=== PATIENT | male | born 1985 | race Caucasian/White ===

== ENCOUNTER 2020-01-30 07:28 | Outpatient (REF) | payer OTHER, SELFPAY ==
[2020-01-30 07:50] LABS: MANUAL DIFF FLAG NO
[2020-01-30 07:58] LABS: Basophils Absolute Auto 0.1 X10*3/uL (0.0-0.2); Basophils Percent Auto 0.7 % (0-2); Eosinophils Absolute Auto 0.1 X10*3/uL (0.0-0.4); Eosinophils Percent Auto 1.6 % (0-4); Hematocrit 46.9 % (42-52); Hemoglobin 15.7 g/dl (14.0-18.0); Imm Gran Abs Auto 0.03 X10*3/uL (0.00-0.03); Imm Gran Pct Auto 0.3 % (0.0-0.4); Lymphocytes Absolute Auto 2.7 X10*3/uL (1.2-4.9); Lymphocytes Percent Auto 30.3 % (20-40); Mean Corpuscular HGB Conc 33.5 g/dl (31.0-36.0); Mean Corpuscular Hemoglobin 28.6 pg (27.0-33.0); Mean Corpuscular Volume 85.6 fL (80-98); Mean Platelet Volume 10.3 fL (9.4-12.4); Monocytes Absolute Auto 0.8 X10*3/uL (0.1-1.2); Monocytes Percent Auto 8.9 % (2-11); Neutrophils Absolute Auto 5.2 X10*3/uL (2.0-8.3); Neutrophils Percent Auto 58.2 % (45-73); Platelet Count 269 X10*3/uL (160-400); Red Blood Count 5.48 X10*6/uL (4.60-5.80); Red Cell Distribution Width 12.8 % (11.0-16.0); White Blood Count 8.9 X10*3/uL (4.8-10.8)
[2020-01-30 08:18] LABS: Alanine Aminotransferase 33 U/L (0-40); Albumin Level 4.5 g/dL (3.5-5.0); Alkaline Phosphatase 103 U/L (39-117); Anion Gap 11 (12-20); Aspartate Amino Transferase 24 U/L (5-37); Bilirubin Total 0.5 mg/dL (0.0-1.0); Blood Urea Nitrogen 9 mg/dL (9-16); Calcium 9.2 mg/dL (8.4-10.2); Carbon Dioxide 29 mmol/L (22-29); Chloride 101 mmol/L (96-108); Cholesterol 225 mg/dL; Estimated Glomerular Filt Rate > 60; Glucose Fasting 104 mg/dL (60-99); HDL Cholesterol 38 mg/dL; LDL Cholesterol Calculated 169 mg/dl; Potassium 5.4 mmol/l (3.3-5.1); Sodium 136 mmol/L (135-145); Total Protein 7.7 g/dL (6.5-8.0); Triglycerides 90 mg/dL
== END 2020-01-30 07:29 | disposition home or self-care (01) ==
LOC: HO.LAB 07:28
PROVIDERS: PCP Internal Medicine Medical Oncology; Visit Provider Internal Medicine Medical Oncology
DX: Z00.00 Encounter for general adult medical examination without abnormal findings (principal); K29.30 Chronic superficial gastritis without bleeding
CPT/HCPCS: 36415; 80053; 80061; 85025

== ENCOUNTER 2021-02-04 07:39 | Outpatient (REF) | payer OTHER, SELFPAY ==
[2021-02-04 07:48] LABS: MANUAL DIFF FLAG NO
[2021-02-04 08:56] LABS: Basophils Percent Auto 0.5 % (0-2); Eosinophils Absolute Auto 0.2 X10*3/uL (0.0-0.4); Eosinophils Percent Auto 1.9 % (0-4); Hematocrit 46.1 % (42.0-52.0); Hemoglobin 15.4 g/dl (14.0-18.0); Imm Gran Abs Auto 0.02 X10*3/uL (0.00-0.03); Imm Gran Pct Auto 0.3 % (0.0-0.4); Lymphocytes Absolute Auto 2.7 X10*3/uL (1.2-4.9); Lymphocytes Percent Auto 34.6 % (20-40); Mean Corpuscular HGB Conc 33.4 g/dl (31.0-36.0); Mean Corpuscular Hemoglobin 28.6 pg (27.0-33.0); Mean Corpuscular Volume 85.7 fL (80.0-98.0); Mean Platelet Volume 11.3 fL (9.4-12.4); Monocytes Absolute Auto 0.8 X10*3/uL (0.1-1.2); Monocytes Percent Auto 10.1 % (2-11); Neutrophils Absolute Auto 4.2 x10*3/uL (2.0-8.3); Neutrophils Percent Auto 52.6 % (45-73); Platelet Count 265 X10*3/uL (160-400); Red Blood Count 5.38 X10*6/uL (4.60-5.80); Red Cell Distribution Width 12.8 % (11.0-16.0); White Blood Count 7.9 X10*3/uL (4.8-10.8)
[2021-02-04 09:08] LABS: Alanine Aminotransferase 26 U/L (0-40); Albumin Level 4.3 g/dL (3.5-5.0); Alkaline Phosphatase 104 U/L (39-117); Anion Gap 12 (12-20); Aspartate Amino Transferase 23 U/L (5-37); Bilirubin Total 0.7 mg/dL (0.0-1.0); Blood Urea Nitrogen 8 mg/dL (9-16); Calcium 9.2 mg/dL (8.4-10.2); Carbon Dioxide 27 mmol/L (22-29); Chloride 102 mmol/L (96-108); Cholesterol 222 mg/dL; Estimated Glomerular Filt Rate > 60; Glucose Fasting 98 mg/dL (60-99); HDL Cholesterol 38 mg/dL; LDL Cholesterol Calculated 163 mg/dl; Potassium 4.8 mmol/L (3.3-5.1); Sodium 136 mmol/L (135-145); Total Protein 7.6 g/dL (6.5-8.0); Triglycerides 106 mg/dL
[2021-02-04 09:29] LABS: Prostate Specific Antigen 0.91 ng/mL (<0.05-4.0)
== END 2021-02-04 07:40 | disposition home or self-care (01) ==
LOC: HO.LAB 07:39
PROVIDERS: PCP Internal Medicine Medical Oncology; Visit Provider Internal Medicine Medical Oncology
DX: E78.00 Pure hypercholesterolemia, unspecified (principal); R35.1 Nocturia
CPT/HCPCS: 36415; 80053; 80061; 84153; 85025

== ENCOUNTER 2022-02-03 07:26 | Outpatient (REF) | payer OTHER, SELFPAY ==
[2022-02-03 07:44] LABS: MANUAL DIFF FLAG NO
[2022-02-03 08:01] LABS: Basophils Absolute Auto 0.1 X10*3/uL (0.0-0.2); Basophils Percent Auto 0.7 % (0-2); Eosinophils Absolute Auto 0.2 X10*3/uL (0.0-0.4); Hematocrit 46.3 % (42.0-52.0); Hemoglobin 15.6 g/dl (14.0-18.0); Imm Gran Abs Auto 0.03 X10*3/uL (0.00-0.03); Imm Gran Pct Auto 0.3 % (0.0-0.4); Lymphocytes Absolute Auto 2.7 X10*3/uL (1.2-4.9); Lymphocytes Percent Auto 29.7 % (20-40); Mean Corpuscular HGB Conc 33.7 g/dl (31.0-36.0); Mean Corpuscular Hemoglobin 29.3 pg (27.0-33.0); Mean Platelet Volume 10.7 fL (9.4-12.4); Monocytes Absolute Auto 0.8 X10*3/uL (0.1-1.2); Monocytes Percent Auto 8.9 % (2-11); Neutrophils Absolute Auto 5.3 x10*3/uL (2.0-8.3); Neutrophils Percent Auto 58.4 % (45-73); Platelet Count 250 X10*3/uL (160-400); Red Blood Count 5.32 X10*6/uL (4.60-5.80); Red Cell Distribution Width 12.8 % (11.0-16.0)
[2022-02-03 08:35] LABS: Alanine Aminotransferase 31 U/L (0-40); Albumin Level 4.4 g/dL (3.5-5.0); Alkaline Phosphatase 107 U/L (39-117); Anion Gap 13 (12-20); Aspartate Amino Transferase 28 U/L (5-37); Bilirubin Total 0.7 mg/dL (0.0-1.0); Blood Urea Nitrogen 7 mg/dL (9-16); Calcium 9.3 mg/dL (8.4-10.2); Carbon Dioxide 27 mmol/L (22-29); Chloride 103 mmol/L (96-108); Cholesterol 226 mg/dL; Estimated Glomerular Filt Rate > 60; Glucose Random 106 mg/dL (60-115); HDL Cholesterol 41 mg/dL; LDL Cholesterol Calculated 158 mg/dl; Potassium 4.6 mmol/L (3.3-5.1); Sodium 138 mmol/L (135-145); Total Protein 7.7 g/dL (6.5-8.0); Triglycerides 135 mg/dL
== END 2022-02-03 07:27 | disposition home or self-care (01) ==
LOC: HO.LAB 07:26
PROVIDERS: PCP Internal Medicine Medical Oncology; Visit Provider Internal Medicine Medical Oncology
DX: Z00.00 Encounter for general adult medical examination without abnormal findings (principal); E78.00 Pure hypercholesterolemia, unspecified
CPT/HCPCS: 36415; 80053; 80061; 85025

== ENCOUNTER 2023-02-02 07:03 | Outpatient (REF) | payer OTHER, SELFPAY ==
[2023-02-02 07:22] LABS: MANUAL DIFF FLAG NO
[2023-02-02 07:37] LABS: Basophils Absolute Auto 0.1 X10*3/uL (0.0-0.2); Basophils Percent Auto 0.7 % (0-2); Eosinophils Absolute Auto 0.1 X10*3/uL (0.0-0.4); Eosinophils Percent Auto 1.9 % (0-4); Hematocrit 46.7 % (42.0-52.0); Hemoglobin 15.5 g/dl (14.0-18.0); Imm Gran Abs Auto 0.03 X10*3/uL (0.00-0.03); Imm Gran Pct Auto 0.4 % (0.0-0.4); Lymphocytes Absolute Auto 2.4 X10*3/uL (1.2-4.9); Lymphocytes Percent Auto 31.9 % (20-40); Mean Corpuscular HGB Conc 33.2 g/dl (31.0-36.0); Mean Corpuscular Volume 87.3 fL (80.0-98.0); Mean Platelet Volume 10.6 fL (9.4-12.4); Monocytes Absolute Auto 0.6 X10*3/uL (0.1-1.2); Monocytes Percent Auto 7.7 % (2-11); Neutrophils Absolute Auto 4.4 x10*3/uL (2.0-8.3); Neutrophils Percent Auto 57.4 % (45-73); Platelet Count 271 X10*3/uL (160-400); Red Blood Count 5.35 X10*6/uL (4.60-5.80); White Blood Count 7.6 X10*3/uL (4.8-10.8)
[2023-02-02 07:59] LABS: Alanine Aminotransferase 23 U/L (0-40); Albumin Level 4.3 g/dL (3.5-5.0); Alkaline Phosphatase 100 U/L (39-117); Anion Gap 12 (12-20); Aspartate Amino Transferase 23 U/L (5-37); Bilirubin Total 0.5 mg/dL (0.0-1.0); Blood Urea Nitrogen 7 mg/dL (9-16); Calcium 9.3 mg/dL (8.4-10.2); Carbon Dioxide 27 mmol/L (22-29); Chloride 104 mmol/L (96-108); Cholesterol 216 mg/dL (<200); Estimated Glomerular Filt Rate > 60; Glucose Fasting 95 mg/dL (60-99); HDL Cholesterol 39 mg/dL (>40); LDL Cholesterol Calculated 157 mg/dL (<100); Potassium 4.3 mmol/L (3.3-5.1); Sodium 139 mmol/L (135-145); Total Protein 7.9 g/dL (6.5-8.0); Triglycerides 101 mg/dL (<150)
== END 2023-02-02 07:04 | disposition home or self-care (01) ==
LOC: HO.LAB 07:03
PROVIDERS: PCP Internal Medicine Medical Oncology; Visit Provider Internal Medicine Medical Oncology
DX: Z00.00 Encounter for general adult medical examination without abnormal findings (principal); E78.00 Pure hypercholesterolemia, unspecified
CPT/HCPCS: 36415; 80053; 80061; 85025

== ENCOUNTER 2024-02-08 07:21 | Outpatient (REF) | payer OTHER, SELFPAY ==
[2024-02-08 07:30] LABS: MANUAL DIFF FLAG NO
[2024-02-08 07:43] LABS: Basophils Absolute Auto 0.1 X10*3/uL (0.0-0.2); Basophils Percent Auto 0.5 % (0-2); Eosinophils Absolute Auto 0.2 X10*3/uL (0.0-0.4); Eosinophils Percent Auto 2.3 % (0-4); Hematocrit 47.5 % (42.0-52.0); Hemoglobin 16.1 g/dl (14.0-18.0); Imm Gran Abs Auto 0.04 X10*3/uL (0.00-0.03); Imm Gran Pct Auto 0.4 % (0.0-0.4); Lymphocytes Percent Auto 31.6 % (20-40); Mean Corpuscular HGB Conc 33.9 g/dl (31.0-36.0); Mean Corpuscular Hemoglobin 29.7 pg (27.0-33.0); Mean Corpuscular Volume 87.6 fL (80.0-98.0); Mean Platelet Volume 10.3 fL (9.4-12.4); Monocytes Absolute Auto 0.8 X10*3/uL (0.1-1.2); Monocytes Percent Auto 8.8 % (2-11); Neutrophils Absolute Auto 5.4 x10*3/uL (2.0-8.3); Neutrophils Percent Auto 56.4 % (45-73); Platelet Count 263 X10*3/uL (160-400); Red Blood Count 5.42 X10*6/uL (4.60-5.80); Red Cell Distribution Width 12.9 % (11.0-16.0); White Blood Count 9.6 X10*3/uL (4.8-10.8)
[2024-02-08 08:29] LABS: Alanine Aminotransferase 38 U/L (0-40); Albumin Level 4.4 g/dL (3.5-5.0); Alkaline Phosphatase 123 U/L (39-117); Anion Gap 16 (12-20); Aspartate Amino Transferase 33 U/L (5-37); Bilirubin Total 0.4 mg/dL (0.0-1.0); Blood Urea Nitrogen 8 mg/dL (9-16); Calcium 9.5 mg/dL (8.4-10.2); Carbon Dioxide 22 mmol/L (22-29); Chloride 103 mmol/L (96-108); Cholesterol 232 mg/dL (<200); Estimated Glomerular Filt Rate > 60; Glucose Fasting 103 mg/dL (60-99); HDL Cholesterol 42 mg/dL (>40); LDL Cholesterol Calculated 165 mg/dL (<100); Potassium 4.5 mmol/L (3.3-5.1); Sodium 136 mmol/L (135-145); Total Protein 7.9 g/dL (6.5-8.0); Triglycerides 127 mg/dL (<150)
== END 2024-02-08 07:22 | disposition home or self-care (01) ==
LOC: HO.LAB 07:21
PROVIDERS: PCP Internal Medicine Medical Oncology; Visit Provider Internal Medicine Medical Oncology
DX: Z00.00 Encounter for general adult medical examination without abnormal findings (principal); D72.820 Lymphocytosis (symptomatic); N40.0 Benign prostatic hyperplasia without lower urinary tract symptoms; Z12.5 Encounter for screening for malignant neoplasm of prostate
CPT/HCPCS: 36415; 80053; 80061; 84153; 85025

== ENCOUNTER 2024-05-09 07:10 | Outpatient (REF) | payer OTHER, SELFPAY ==
--- NOTE | ~2024-05-09 | XR_ITS ---
CLINICAL HISTORY: PAIN 3 view left shoulder Comparison: None Findings: Bones intact. No dislocations. No significant loss of joint space or osteophytes. No erosions. No radiopaque foreign body. IMPRESSION: 1. No acute findings This document has been electronically signed by: Randall Hernandez MD on 05/11/2024 12:23:14
--- NOTE | ~2024-05-09 | XR_ITS ---
CLINICAL HISTORY: NECK PAIN 4 views cervical spine Comparison: None Findings: Normal vertebral body alignment. No acute fractures or dislocation. No significant degenerative change. Prevertebral soft tissues within normal limits. IMPRESSION: No acute findings. This document has been electronically signed by: Randall Hernandez MD on 05/11/2024 11:49:53
--- OUTSIDE RECORDS SUMMARY | 2024-05-09 07:13 | XMS_ITS | Patient Health Record ---
Author Organization Ambrocio Valencia III, MD Address [address] [place] [address] [place] [address] Care Team Providers Care Machine Bander And Cellophaner Name Role Phone Ambrocio Valencia Primary Care Provider Allergies Allergen (clinical drug ingredient) Drug/Non Drug Allergy documented on EMR Reaction Allergy Type Onset Date Status No Known Drug Allergy Unknown Drug Allergy Active Results Component Value Reference Range Notes Complete Blood Count Auto Di ff Reviewed date:02/10/2024 07:35:58 AM Interpretation: Performing Lab:[facility], [address] [place] [id number] Notes/Report: White Blood Count 9.6 4.8-10.8 X10*3/uL Red Blood Count 5.42 4.60-5.80 X10*6/uL Hemoglobin 16.1 14.0-18.0 g/dl Hematocrit 47.5 42.0-52.0 % Mean Corpuscular Volume 87.6 80.0-98.0 fL Mean Corpuscular Hemoglobin 29.7 27.0-33.0 pg Mean Corpuscular HGB Conc 33.9 31.0-36.0 g/dl Red Cell Distribution Width 12.9 11.0-16.0 % Platelet Count 263 160-400 X10*3/uL Mean Platelet Volume 10.3 9.4-12.4 fL Neutrophils Percent Auto 56.4 45-73 % Imm Gran Pct Auto 0.4 0.0-0.4 % Lymphocytes Percent Auto 31.6 20-40 % Monocytes Percent Auto 8.8 2-11 % Eosinophils Percent Auto 2.3 0-4 % Basophils Percent Auto 0.5 0-2 % NRBC Pct Auto 0.0 0.0-0.2 /100WBC Neutrophils Absolute Auto 5.4 2.0-8.3 x10*3/u L Imm Gran Abs Auto 0.04 0.00-0.03 X10*3/uL Lymphocytes Absolute Auto 3.0 1.2-4.9 X10*3/u L Monocytes Absolute Auto 0.8 0.1-1.2 X10*3/uL Eosinophils Absolute Auto 0.2 0.0-0.4 X10*3/u L Basophils Absolute Auto 0.1 0.0-0.2 X10*3/uL NRBC Abs Auto 0.000 0.0-0.012 X10*3/uL Comprehensive [place]. Panel Fa st Reviewed date:02/10/2024 07:35:59 AM Interpretation: Performing Lab:[address] [id number] Notes/Report: Sodium 136 135-145 mmol/L Potassium 4.5 3.3-5.1 mmol/L Chloride 103 96-108 mmol/L Carbon Dioxide 22 22-29 mmol/L Anion Gap 16 12-20 Blood Urea Nitrogen 8 9-16 mg/dL Creatinine 0.89 0.5-1.4 mg/dL Estimated Glomerular Filt Rate > 60 Chronic Kidney Disease: Estimated GFR < 60 mL/min/1.73m2 Severe Kidney Disease: Estimated GFR < 15 mL/min/1.73m2 Glucose Fasting 103 60-99 mg/dL A fasting glucose from 100-125 mg/dl is considered impaired (pre-diabetes). Calcium 9.5 8.4-10.2 mg/dL Bilirubin Total 0.4 0.0-1.0 mg/dL Aspartate Amino Transferase 33 5-37 U/L Alanine Aminotransferase 38 0-40 U/L Total Protein 7.9 6.5-8.0 g/dL Albumin Level 4.4 3.5-5.0 g/dL Alkaline Phosphatase 123 39-117 U/L Lipid Panel Reviewed date:02/10/2024 07:35:59 AM Interpretation: Performing Lab:[address] [phone] Notes/Report: Triglycerides 127 <150 mg/dL Desirable Triglyceride: less than 150 mg/dL Borderline High Triglyceride 150-199 mg/dL High Triglyceride: 200-499 mg/dL Very High Triglyceride: greater than or equal to 5OO mg/dL Cholesterol 232 <200 mg/dL Desirable Cholesterol: less than 200 mg/dL Borderline High Cholesterol: 200-239 mg/dL High Cholesterol: greater than 239 mg/dL LDL Cholesterol Calculated 165 <100 mg/dL Desirable LDL: less than 100 mg/dL Near Optimal/Above Optimal LDL: 110-129 mg/dL Borderline High LDL: 130-159 mg/dL High LDL: 160-189 mg/dL Very High LDL: greater than or equal to 190 mg/dL HDL Cholesterol 42 >40 mg/dL Desirable HDL: greater than 40 mg/dL Note: This HDL assay may give artificially low results in patients with liver disease. Prostate Specific Antigen Reviewed date:02/10/2024 07:35:59 AM Interpretation: Performing Lab:[facility], [address] [place] [id number] Notes/Report: Prostate Specific Antigen 1.90 <0.05-4.0 ng/mL PSA methodology: [employer] i Chemiluminescent Microparticle Immunoassay (CMIA) URINE DIP STICK Reviewed date:02/19/2024 04:20:34 PM Interpretation: Performing Lab: Notes/Report: SG 1.010 1.005 - 1.025 pH 6.0 5.0 - 9.0 SHAILESH Negative Negative - NIT Negative Negative - PRO 15 Negative - Trace GLU Negative Negative - KET 5 Negative - UBG 0.2 0.1 - 1.8 NARENDRA Negative 0.2 - 1.3 BLD 50 Negative - Reason For Referral No Information Medications Medication SIG (Take, Route, Frequency, Duration) Notes Start Date End Date Status Doxycycline Hyclate 100 MG 1 capsule Ora lly Once a day 02/19/2024 Active Immunizations Vaccine Route Administration Date Status Comme nts Tetanus and Diphtheria Toxoids Adsorbed IM Intramuscular 02/14/2022 Administered Decline: Influenza Unknown 02/15/2023 Others Social History Tobacco Use: Social History Observation [...] Problem Status W/U Status Risk Notes Problem 443657237 Overweight (E66.3) Active confirmed His weight has increased 7 pounds to 192. His body mass index is 26.78.. He is very slightly overweight. We discussed diet and nutrition. We made a plan to lose weight at a rate of one half of a pound per week until a body mass index is in the normal range. Problem 876746407 Chronic superficial gastritis without bleeding (K29.30) Active confirmed He has had no symptoms of gastritis or of GERD since his last visit. He was directed to use omeprazole and liquid antacid if these occur. Problem 99984698 Acne vulgaris (L70.0) Active confirmed I have reinstituted doxycycline 100 mg once a day to control the activity which is much worse on his back. If necessary, he will return to the taxicab starter . I recommended he resume the use of benzoyl peroxide. Problem 450852455 GERD without esophagitis (K21.9) Active confirmed He is using kbxx-ozi-aqwc ter medication like liquid antacid and omeprazole with good results. Problem 35488484 Tobacco dependence (F17.200) Active confirmed We discussed smoking cessation at length. I made him aware of smoke [place] and of the smoking cessation programs at all of the local hospitals. Problem Hypercholesterolemi a (54338851) Hypercholesterol emia (E78.00) Active confirmed The current fasting lipid profile shows his [...] will be repeated in the near future. Vital Signs Heart Rate 85 /min 05/08/2024 Temperature 98.1 degrees Fahrenheit 05/08/2024 Blood pressure diastolic 71 mm Hg 05/08/2024 Height 71 in 05/08/2024 Blood pressure systolic 140 mm Hg 05/08/2024 Weight 196 lbs 05/08/2024 BMI 27.33 kg/m2 05/08/2024 Encounters Encounter Location Date Provider Diagnosis Ambrocio Valencia III, MD [address] [place] [address] [address] [place], [place] [address] 02/19/2024 Ambrocio Valencia Cervical radiculopat hy M54.12 ; Tobacco dependence F17.200 ; GERD without esophagitis K21.9 ; Acne vulgaris L70.0 and Overweight E66.3 Ambrocio Valencia III, MD [address] [place] [address] [address] [place], [place] [address] 05/08/2024 Ambrocio Valencia Cervical radiculopat hy M54.12 ; Neck pain M54.2 and Shoulder pain, left M25.512 Assessments Encounter Date Diagnosis (ICD Code) Assessment Notes Treat ment Notes Treatment Clinical Notes 02/19/2024 Tobacco dependence (ICD-10 - F17.200) We discussed smoking cessation at length. I made him aware of smoke [place] and of the smoking cessation programs at all of the local hospitals. 02/19/2024 Cervical radiculopathy (ICD-10 - M54.12) His neck pain is still present but much improved. It is an intermittent nuisance at this point. He will avoid heavy lifting and then do exertion. 05/08/2024 Cervical radiculopathy (ICD-10 - M54.12) His neck pain is still present but much improved. It is an intermittent nuisance at this point. He will avoid heavy lifting and then do exertion. 02/19/2024 GERD without esophagitis (ICD-10 - K21.9) He is using ario-hcm-izxpmwy medication like liquid antacid and omeprazole with good results. 05/08/2024 Neck pain (ICD-10 - M54.2) 02/19/2024 Acne vulgaris (ICD-10 - L70.0) I have reinstituted doxycycline 100 mg once a day to control the activity which is much worse on his back. If necessary, he will return to the taxicab starter. I recommended he resume the use of benzoyl peroxide. 05/08/2024 Shoulder pain, left (ICD-10 - M25.512) 02/19/2024 Overweight (ICD-10 - E66.3) His weight has increased 7 pounds to 192. His body mass index is 26.78.. He is very slightly overweight. We discussed diet and nutrition. We made a plan to lose weight at a rate of one half of a pound per week until a body mass index is in the normal range. Plan Of Treatment Pending Test Test Name Order Date URINE DIP STICK 02/14/2022 URINE DIP STICK 02/08/2020 PROFILE, FASTING (COMPREHENSIVE METABOLI C) 02/08/2020 PROFILE, FASTING (COMPREHENSIVE METABOLI C) 02/15/2023 PROFILE, FASTING (COMPREHENSIVE METABOLI C) 02/06/2019 PROFILE, FASTING (COMPREHENSIVE METABOLI C) 02/14/2022 PROFILE, FASTING (COMPREHENSIVE METABOLI C) 02/13/2021 LIPID PANEL 02/08/2020 LIPID PANEL 02/06/2019 PSA, TOTAL 02/15/2023 PSA, TOTAL 02/08/2020 CBC w DIFF 02/13/2021 CBC w DIFF 02/08/2020 CBC w DIFF 02/06/2019 CBC w DIFF 02/14/2022 XR SHOULDER LT 2 VIEWS 05/08/2024 CBC WITH AUTO DIFF 02/15/2023 Lipid Panel 02/14/2022 Lipid Panel 02/13/2021 Lipid Panel 02/15/2023 XR cervical spine 3V 05/08/2024 Next Appt Details Provider Name:Ambrocio Valencia, 05/22/2024 03:15:00 PM, [address] [place] [address] [address], [place], [address], Provider Name:Ambrocio Valencia, 02/22/2025 04:00:00 PM, [address] , [address], [place], [address], Insurance Providers Payer Name Payer Address Payer Phone Subscriber Number Group Number Insured Name Patient Relationship to Insured Coverage Start Date Coverage End Date [address] [facility] [place] [phone] [id number] Power Hernandez Self - patient is the insured Medical (General) History Medical History History ICD Code history of sprain of right ankle multiple caries, poor dentition tobacco dependence since age 16 dermatitis costochondritis, [facility] emergency room, 2016 GERD 2008 gastritis 2008 on upper GI series Surgical History Surgery Date(Month/Year) No history history of fracture of right ankle Hospitalization History Reason Date(Month/Year) No history
--- OUTSIDE RECORDS SUMMARY | 2024-05-09 07:14 | XMS_ITS ---
Author Organization Ambrocio Valencia III, MD Address [address] [facility] [place] [address] Care Team Providers Care Safety Deposit Supervisor Name Role Phone Ambrocio Valencia Primary Care [...] Problem Status W/U Status Risk Notes Problem [id number] Acne vulgaris (L70.0) Active confirmed I have reinstituted doxycycline 100 mg once a day to control the activity which is much worse on his back. If necessary, he will return to the speech clinician. I recommended he resume the use of benzoyl peroxide. Vital Signs Temperature 98.6 degrees Fahrenheit 02/19/20 24 Blood pressure systolic 131 mm Hg 02/19/20 24 Blood pressure diastolic 84 mm Hg 024 Heart Rate 84 /min 02/19/2024 Height 71 in 02/19/2024 Weight 192 lbs 02/19/2024 BMI 26.78 kg/m2 02/19/2024 \ Encounters Encounter Location Date Provider Diagnosis Ambrocio Valencia III, MD [address] [place] [address] [place] [address] 02/19/2024 Ambrocio Valencia Cervical radiculopat hy M54.12 [...] length. I made him aware of smoke [place] and of the smoking cessation programs at all of the local hospitals. 02/19/2024 GERD without esophagitis (ICD-10 - K21.9) He is using cmvw-njg-bigdxto medication like liquid antacid and omeprazole with good results. 02/19/2024 Acne vulgaris (ICD-10 - L70.0) I have reinstituted doxycycline 100 mg once a day to control the activity which is much worse on his back. If necessary, he will return to the speech clinician. I recommended he resume the use of [...] monitor the patient's overall health. Provider Name:Ambrocio Valencia, 05/22/2024 03:15:00 PM, [address] [place] [address] [address], [place], [address], Provider Name:Ambrocio Valencia, 02/22/2025 04:00:00 PM, [address] [place] [address] [address], [place], [address], Progress Notes * Power KONGDOB: [birth year] (38 yo M)Acc No.[id number]:02/19/2024 Progress Notes Patient:Power NIELSON Provider:?Ambrocio Valencia MD :1985???Age:38 Y???Sex:Male Rey e:02/19/2024 Address:[address] [place], [place] [address], [id number] Subjective: * Chief Complaints: * ???Annual exam * HPI: ???Depression Screening:?PHQ-9?Little interest or pleasure in doing things?Not at all ?Feeling down, depressed, or hopeless?Not at all ?Trouble falling or staying asleep, or sleeping too much?Not at all ?Feeling tired or having little energy?Not at all ?Poor appetite or overeating?Not at all ?Feeling bad about yourself or that you are a failure, or have let yourself or your family down?Not at all ?Trouble concentrating on things, such as reading the newspaper or watching television?Not at all ?Moving or speaking so slowly that other people could have noticed; or the opposite, being so fidgety or restless that you have been moving around a lot more than usual?Not at all ?Thoughts that you would be better off or of hurting yourself in some way?Not at all ?Total Score?0 ???COVID-19 Screening:?Questions?Have you experienced fever, chills, cough, sore throat, shortness of breath, difficulty breathing, muscle aches, loss of taste or smell??No ?Have you been exposed to the virus within the last 10 days??No ?Have you travelled internationally in the last 10 days??No ?Have you been exposed to COVID-19 in the past??No ???SDOH Questions:?SDOH Questions?In the past year have you been worried about losing your housing??No ?In the past year have you or any family members you live with been unable to get any of the following when it was really needed? Check all that apply:?None ???:? The patient, a 38-year-old male, presented with [...] on his back, and has seen a speech clinician for this issue in the past. The patient reported no current use of prescription medications. Blood Sugar Level is Normal. * ROS:?General/Constitutional:?pain?neck.?Chills?denies.?Fatigue?admits.?Fever?denies.?ENT:?Decreased hearing?denies.?Respiratory:?Cough?denies.?Cardiovascular:?Chest pain with exertion?denies.?Dyspnea on exertion?denies.?Shortness of breath?denies.?Gastrointestinal:?Constipation?occasional.?Decreased appetite?denies.?Diarrhea?denies.?Admits?Heartburn,?denies.?Nausea?denies.?Recta l bleeding?denies.?Vomiting?denies.?Hematology:?bruising?denies.?petechiae?denies.?Swollen glands?none have been noted.?Genitourinary:?Frequent urination?denies.?Musculoskeletal:?Muscle aches?denies.?Painful joints?denies.?Sciatica?denies.?Weakness?denies.?Skin:?Itching?denies.?Rash?denies.?Skin lesion(s)?denies.?Neurologic:?Difficulty speaking?denies.?Dizziness?denies.?Headache?denies.?Low back pain?denies.?Psychiatric:?Depressed mood?denies.? * Medical History:? * Surgical History:?history of fracture of right ankle No history * Hospitalization/Major Diagno stic Procedure:?No history * Family History:?Father: dece ased 55 yrs, diagnosed with Cancer.?Mother: alive 59 yrs, Good health with adult-onset diabetes, diagnosed with DM.?1 sister(s) - healthy. .? His sister, Leela, is in good health. His father of lung cancer. His mother is diabetic. He has no children. There is no history of hereditary malignancy. He is not aware of any family history of mental illness or substance use disorder or addiction. * Social History:?Tobacco Use:?Tobacco Use/Smoking?Patient is a?current smoker ?How often do you smoke cigarettes??every day ?How many cigarettes a day do you smoke??11-20 ?How soon after you wake up do you smoke your first cigarette??31-60 minutes ?Are you interested in quitting??Thinking about quitting ?Additional Findings: Tobacco User?Moderate cigarette smoker (10-19 cigs/day) ?Tobacco Control (Standard)?Tobacco use:?Current smoker ?How often do you smoke cigarettes??Every day ?How many cigarettes a day do you smoke??11-20 ?How soon after you wake up do you smoke your first cigarette??31-60 minutes ?Are you interested in quitting??Thinking about quitting ?Additional Findings: Tobacco user?Moderate cigarette smoker (10-19 cigs/day) ???Drugs/Alcohol:?Drugs?Have you used drugs other than those for medical reasons in the past 12 months??Yes ?Marijuana??Yes ???Drug/Alcohol:?AUDIT-C (Standard)?Did you have a drink containing alcohol in the past year??Yes ?How often did you have six or more drinks on one occasion in the past year??4 or more times a week (4 points) ?How many drinks did you have on a typical day when you were drinking in the past year??3 or 4 drinks (1 point) ?How often did you have a drink containing alcohol in the past year??2 to 3 times a week (3 points) ?Points?8 ?Interpretation?Positive ???He smokes a half a packages of cigarettes per day. He is single and has no children. He was born and [place], [place]. 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 He has no toxic exposures but is required to lift heavy weights all day long. * Medications:?Discontinueddex AMETHasone 2 MG Tablet 1 tablet Orally every 12 hrs Gabapentin 300 MG Capsule 1 capsule Orally three times a day Medication List reviewed and reconciled with the patientDiscontinued dexAMETHasone 2 MG Tablet 1 tablet Orally every 12 hrs Discontinued Gabapentin 300 MG Capsule 1 capsule Orally three times a day Medication List reviewed and reconciled with the patient * Allergies:?No Known Drug All ergyno[Allergies Verified] Objective: * Vitals:?Ht: 71, Wt: 192, BMI :26.78, BP: 131/84, HR: 84, Temp: 98.6, Wt-k.09. \. * ???Past Orders: Lab:Comprehensive [place]. Pane l Fast * Collection Date 02/08/2024 02/02/2023 [...] 4.3 (Ref Range: 3.5-5.0 g/dL) Alkaline Phosphatase 123?H (Ref Range: 39-117 U/L) 100 (Ref Range: [...] 12 (Ref Range: 12-20) Blood Urea Nitrogen 8?L (Ref Range: 9-16 mg/dL) 7?L (Ref Range: 9-16 mg/dL) 8?L (Ref Range: 9-16 mg/dL) Creatinine 0.89 (Ref Range: 0.5-1.4 mg/dL) 0.81 (Ref Range: 0.5-1.4 mg/dL) 0.84 (Ref Range: 0.5-1.4 mg/dL) Estimated Glomerular Filt Rate > 60 > 60 > 60 Glucose Fasting 103?H (Ref Range: 60-99 mg/dL) 95 (Ref Range: [...] <150 mg/dL) 135 (Ref Range: mg/dL) Cholesterol 232?H (Ref Range: <200 mg/dL) 216?H (Ref Range: <200 mg/dL) 226 (Ref Range: mg/dL) LDL Cholesterol Calculated 165?H (Ref Range: <100 mg/dL) 157?H (Ref Range: <100 mg/dL) 158 (Ref Range: mg/dl) HDL Cholesterol 42 (Ref Range: >40 mg/dL) 39?L (Ref Range: >40 mg/dL) 41 (Ref Range: [...] Range: 2.0-8.3 x10*3/uL) Imm Gran Abs Auto 0.04?H (Ref Range: 0.00-0.03 X10*3/uL) 0.03 (Ref Range: [...] 0.000 (Ref Range: 0.0-0.012 X10*3/uL) * Examination: ???General Examination: ?GENERAL APPEARANCE:?pleasant, well nourished, well developed, in no acute distress, calm and relaxed, overweight, man.?HEAD:?atraumatic, normocephalic.?EYES:?eomi, perrla, anicteric, conjugate.?EARS:?normal.?NOSE:?septum intact.?ORAL CAVITY:?normal, unremarkable.?NECK/THYROID:?no jugular venous distention, no carotid bruit, thyroid normal.?LYMPH NODES:?no enlarged lymph nodes,spleen normal.?SKIN:?no suspicious lesions, anicteric Severe acne over most of his back.?HEART:?no clicks, gallops, murmurs, or rubs, regular rhythm, S1, S2 normal, no s3, or vascular bruits.?LUNGS:?clear to auscultation .?BREASTS:??no masses palpable bilaterally.?ABDOMEN:?bowel sounds normal, no ascites, no organomegaly, no mass, overweight, overweight.?RECTAL EXAM:?not examined.?MUSCULOSKELETAL:?extremities unremarkable, no clubbing, cyanosis or edema.?PERIPHERAL PULSES:?normal.?NEUROLOGIC:?alert and oriented, cranial nerves 2-12 grossly intact, deep tendon reflexes 2+ symmetrical, motor strength normal upper and lower extremities, sensory exam intact.?PSYCH:?alert, oriented.? Assessment: * Assessment: 1.?Tobacco dependence - F17. 200 (Primary)???Notes :We discussed smoking cessation at length. I made him aware of smoke [place] and of the smoking cessation programs at all of the local hospitals.???2.?Cervical radiculopathy - M54.12???Notes :His neck pain is still present but much improved.? It is an intermittent nuisance at this point.? He will avoid heavy lifting and then do exertion.???3.?GERD without esophagitis - K21.9???Notes :He is using bvkh-kpj-blkiwik medication like liquid antacid and omeprazole with good results.???4.?Acne vulgaris - L70.0???Notes :I have reinstituted doxycycline 100 mg once a day to control the activity which is much worse on his back.? If necessary, he will return to the speech clinician.? I recommended he resume the use of benzoyl peroxide.???5.?Overweight - E66.3???Notes :His weight has increased 7 pounds to 192.? His body mass index is 26.78.. He is very slightly overweight. We discussed diet and nutrition. We made a plan to lose weight at a rate of one half of a pound per week until a body mass index is in the normal range.??? Plan: * Treatment: * Labs:? * ?Lab: URINE DIP STICK (C ollection Date & Time - 02/19/2024) ? Value Reference Range ?SG 1.010 1.005 - 1.025 * ?pH 6.0 5.0 - 9.0 * ?SHAILESH Negative Negative - * ?NIT Negative Negative - * ?PRO 15 Negative - Trac e * ?GLU Negative Negative - * ?KET 5 Negative - * ?UBG 0.2 0.1 - 1.8 * ?NARENDRA Negative 0.2 - 1.3 * ?BLD 50 Negative - * Procedure Codes:?20172 URINE -NO MICRO * Preventive Medicine:? ??Counseling:?Care goal follow-up plan:?Counseling for abnormal BMI given?Yes ?Above Normal BMI Follow-up?Dietary management education, guidance, and counseling, Dietary needs education, Exercise promotion: strength training, Exercise promotion: stretching, Feeding regime, Giving encouragement to exercise, Lifestyle education regarding diet, Nutrition / feeding management, Nutrition therapy, Prescribed activity/exercise education, Prescribed diet education, Prescribed dietary intake, Special diet education, Weight monitoring , Intervention, Order not done: Medical or Other reason not done ?Smoking/Tobacco Use?Patient counseled on the dangers of tobacco use and urged to quit.?02/19/2024 ?Patient Lifestyle Goals?Patient wants to quit ?Treatment Goals?Set a quit date, Cut down by 1 cigarette a week ?Barriers?Stress, Social smoker ?Self-Management Plan?Make a plan to cut down number of cigarettes over time and set a date to work towards quitting ?Alcohol and drugs?.? * Follow Up:?2 Months, In a co uple of months (Reason: OV, To assess the effectiveness of the acne treatment and monitor the patient's overall health.) * Images: * Sign off status: Completed true * Provider:?Ambrocio Valencia MD Date:?06/2023 Generated for Ricky villarreal/Keyanna/eTransmitting on:?05/09/2024 07:13 AM EST History and Physical Notes * [...] Have you been exposed to the virus with n the last 10 days?: No Have you travelled internationally in [facility] last 10 days?: No Have you been [...] edema LYMPH NODES: no enlarged lymph no alnodra,spleen normal RECTAL EXAM: not examined PSYCH: alert, oriented ORAL CAVITY: normal, unremarkable
== END 2024-05-09 07:11 | disposition home or self-care (01) ==
LOC: HO.XRAY 07:10
PROVIDERS: PCP Internal Medicine Medical Oncology; Visit Provider Internal Medicine Medical Oncology
DX: M25.512 Pain in left shoulder (principal); M54.2 Cervicalgia; M25.511 Pain in right shoulder
CPT/HCPCS: 72040; 73030

== ENCOUNTER → 2024-05-09 07:19 | Outpatient (BNV) | payer OTHER, SELFPAY | PROVIDERS: PCP Internal Medicine Medical Oncology; Visit Provider Radiology Vascular & Interventional Radiology | DX: M54.2 Cervicalgia (principal); M25.512 Pain in left shoulder | CPT/HCPCS: 72040; 73030 ==

== ENCOUNTER 2025-02-13 07:01 | Outpatient (REF) | payer OTHER, SELFPAY ==
--- OUTSIDE RECORDS SUMMARY | 2024-02-19 11:00 | XMS_ITS ---
Author Organization Ambrocio Valencia III, MD Address [address] [place] [address] [place] [address] Care Team Providers Care Personal Consultant Name Role Phone Dr. Ambrocio Valencia III Primary Care Provider [phone] Allergies Allergen (clinical drug ingredient) Drug/Non Drug Allergy documented on EMR Reaction Allergy Type Onset Date Status Information temporarily unavailable No Known Drug Allergy Unknown Drug Allergy Active Results Component Value Reference Range Notes URINE DIP STICK Reviewed date:02/19/2024 04:20:34 PM Interpretation: Performing Lab: Notes/Report: SG 1.010 1.005 - 1.025 pH 6.0 5.0 - 9.0 SHAILESH Negative Negative - NIT Negative Negative - PRO 15 Negative - Trace GLU Negative Negative - KET 5 Negative - UBG 0.2 0.1 - 1.8 NARENDRA Negative 0.2 - 1.3 BLD 50 Negative - REASON FOR VISIT annual exam Medications Medication SIG (Take, Route, Frequency, Duration) Notes Start Date End Date Status Doxycycline Hyclate 100 MG 1 capsule Ora lly Once a day for 30 days 02/19/2024 08/17/2024 Active Social History Tobacco Use: Social History Observation Description Date Details (start date - stop date) Current Smoker NA - NA Sex Assigned At : Social History Observation Description Sex Assigned At Male Tobacco Use/Smoking Question Answer Notes Patient is a current smoker How often do you smoke cigarettes? every day How many cigarettes a day do you smoke? 11-20 How soon after you wake up d o you smoke your first cigarette? 31-60 minutes Are you interested in quitting? Thinking about q uitting Additional Findings: Tobacco User Modera te cigarette smoker (10-19 cigs/day) Tobacco Control (Standard) Question Answer Notes Tobacco use: Current smoker How often do you smoke cigarettes? Every day How many cigarettes a day do you smoke? 11-20 How soon after you wake up d o you smoke your first cigarette? 31-60 minutes Are you interested in quitting? Thinking about q uitting Additional Findings: Tobacco user Modera te cigarette smoker (10-19 cigs/day) AUDIT-C (Standard) Question Answer Notes Did you have a drink contain ing alcohol in the past year? Yes How often did you have six o r more drinks on one occasion in the past year? 4 or more times a week (4 points) How many drinks did you have on a typical day when you were drinking in the past year? 3 or 4 drinks (1 point) How often did you have a dri nk containing alcohol in the past year? 2 to 3 times a week (3 points) Points 8 Interpretation Positive Problems Problem Type SNOMED Code ICD Code Onset Dates Problem Status W/U Status Risk Notes Problem [id number] Acne vulgaris (L70.0) Active confirmed He will continue long-term on doxycycline. He says he is unable to reach the affected skin to apply benzoyl peroxide. He has declined an offer referral back to dermattology . Vital Signs Temperature 98.6 degrees Fahrenheit 02/19/20 24 Blood pressure systolic 131 mm Hg 02/19/20 24 Blood pressure diastolic 84 mm Hg 024 Heart Rate 84 /min 02/19/2024 Height 71 in 02/19/2024 Weight 192 lbs 02/19/2024 BMI 26.78 kg/m2 02/19/2024 \ Encounters Encounter Location Date Provider Diagnosis Ambrocio Valencia III, MD [address] [place] [address] [place] [address] 02/19/2024 Ambrocio Valencia Cervical radiculopat hy M54.12 ; Tobacco dependence F17.200 ; GERD without esophagitis K21.9 ; Acne vulgaris L70.0 and Overweight E66.3 Assessments Encounter Date Diagnosis (ICD Code) Assessment Notes Treat ment Notes Treatment Clinical Notes 02/19/2024 Cervical radiculopathy (ICD-10 - M54.12) His neck pain is still present but much improved. It is an intermittent nuisance at this point. He will avoid heavy lifting and then do exertion. 02/19/2024 Tobacco dependence (ICD-10 - F17.200) We discussed smoking cessation at length. I made him aware of smoke [place] and of the smoking cessation programs at all of the local hospitals. 02/19/2024 GERD without esophagitis (ICD-10 - K21.9) He is using [id number]-lylvzba medication like liquid antacid and omeprazole with good results. 02/19/2024 Acne vulgaris (ICD-10 - L70.0) I have reinstituted doxycycline 100 mg once a day to control the activity which is much worse on his back. If necessary, he will return to the unit aide. I recommended he resume the use of benzoyl peroxide. 02/19/2024 Overweight (ICD-10 - E66.3) His weight has increased 7 pounds to 192. His body mass index is 26.78.. He is very slightly overweight. We discussed diet and nutrition. We made a plan to lose weight at a rate of one half of a pound per week until a body mass index is in the normal range. Plan Of Treatment Medication Medication Name Sig Start Date Stop Date Notes Doxycycline Hyclate 100 MG 1 capsule Ora lly Once a day for 30 days 02/19/2024 08/17/2024 Next Appt Details Follow Up: 2 Months, In a co uple of months, Reason: OV, To assess the effectiveness of the acne treatment and monitor the patient's overall health. Provider Name:Ambrocio Valencia , 02/22/2025 04:00:00 PM, [address] [place] [address], [id number], Progress Notes * Power KONGDOB: [birth year] (38 yo M)Acc No.[id number]:02/19/2024 Progress Notes Patient: Power HINDS Provider: Brianda Valencia MD :1985 A ge:38 Y S ex:Male Date:02/19/2024 Address:[address] [place] [address] [place] [id number] Subjective: * Chief Complaints: * A nnual exam * HPI: D epression Screening: PHQ-9 L ittle interest or pleasure in doing things?Not at all F eeling down, depressed, or hopeless N ot at all T rouble falling or staying asleep, or sleeping too much N ot at all F eeling tired or having little energy N ot at all P oor appetite or overeating N ot at all F eeling bad about yourself or that you are a failure, or have let yourself or your family down N ot at all T rouble concentrating on things, such as reading the newspaper or watching television N ot at all M oving or speaking so slowly that other people could have noticed; or the opposite, being so fidgety or restless that you have been moving around a lot more than usual N ot at all T houghts that you would be better off or of hurting yourself in some way N ot at all T otal Score 0 C OVID-19 Screening: Questions H ave you experienced fever, chills, cough, sore throat, shortness of breath, difficulty breathing, muscle aches, loss of taste or smell? N o H ave you been exposed to the virus within the last 10 days? N o H ave you travelled internationally in the last 10 days? N o H ave you been exposed to COVID-19 in the past? N o S DANIEL Questions: SDOH Questions I n the past year have you been worried about losing your housing? N o I n the past year have you or any family members you live with been unable to get any of the following when it was really needed? Check all that apply: N one * : The patient, a 38-year-old male, presented with intermittent neck pain that he described as bearable. The pain is located in the back of his neck and shoulder, where he feels a soreness. 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 The doctor suggested that the pain could be due to a pinched nerve in the neck or issues with the muscles attached to the scapula forming the rotator cuff. The doctor mentioned the possibility of injections under X-ray guidance if the pain worsens. The patient also reported occasional heartburn, but no other significant symptoms. He is a smoker, consuming about a pack a day, and occasionally drinks alcohol. He has a history of acne, primarily on his back, and has seen a unit aide for this issue in the past. The patient reported no current use of prescription medications. Blood Sugar Level is Normal. * ROS: G eneral/Constitutional: pain n sherrell. C hills d enies. F atigue a dmits. F ever d enies. E NT: Decreased hearing d enies. R espiratory: Cough d enies. C ardiovascular: Chest pain with exertion d enies. D yspnea on exertion?denies. S hortness of breath d enies. G astrointestinal: Constipation o ccasional. D ecreased appetite d enies. D iarrhea d enies. A dmits H eartburn, d enies. N ausea d enies.?Rectal bleeding d enies. V omiting d enies. H ematology: bruising d enies. p etechiae d enies. S wollen glands n one have been noted. G enitourinary: Frequent urination d enies. M usculoskeletal: Muscle aches d enies. P ainful joints d enies. S ciatica d enies. W eakness d enies. S kin: Itching d enies. R beth d enies. S kin lesion(s)?denies. N eurologic: Difficulty speaking d enies. D izziness d enies.?Headache d enies. L ow back pain d enies. P sychiatric: Depressed mood d enies. * Medical History: * Surgical History: h istory of fracture of right ankle No history * Hospitalization/Major Diagno stic Procedure: N o history * Family History: F ather: 55 yrs, diagnosed with Cancer. M other: alive 59 yrs, Good health with adult-onset diabetes, diagnosed with DM. 1 sister(s) - healthy. . His sister, Leela, is in good health. His father of lung cancer. His mother is diabetic. He has no children. There is no history of hereditary malignancy. He is not aware of any family history of mental illness or substance use disorder or addiction. * Social History: T obacco Use: T obacco Use/Smoking P atient is a c urrent smoker H ow often do you smoke cigarettes? e very day H ow many cigarettes a day do you smoke? 1 1-20 H ow soon after you wake up do you smoke your first cigarette? 3 1-60 minutes A re you interested in quitting? T hinking about quitting A dditional Findings: Tobacco User M oderate cigarette smoker (10-19 cigs/day) Tobacco Control (Standard) T obacco use: C urrent smoker H ow often do you smoke cigarettes? E very day H ow many cigarettes a day do you smoke? 1 1-20 H ow soon after you wake up do you smoke your first cigarette? 3 1-60 minutes A re you interested in quitting? T hinking about quitting A dditional Findings: Tobacco user M oderate cigarette smoker (10-19 cigs/day) D rugs/Alcohol: D rugs H ave you used drugs other than those for medical reasons in the past 12 months? Y es M arijuana? Y es D rug/Alcohol: A GABY-C (Standard) D id you have a drink containing alcohol in the past year? Y es H ow often did you have six or more drinks on one occasion in the past year? 4 or more times a week (4 points) H ow many drinks did you have on a typical day when you were drinking in the past year? 3 or 4 drinks (1 point) H ow often did you have a drink containing alcohol in the past year? 2 to 3 times a week (3 points) P oints 8 I nterpretation P ositive H e smokes a half a packages of cigarettes per day. He is single and has no children. He was born and [place], [place]. 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 He has no toxic exposures but is required to lift heavy weights all day long. * Medications: D iscontinueddexAMETHasone 2 MG Tablet 1 tablet Orally every 12 hrs Gabapentin 300 MG Capsule 1 capsule Orally three times a day Medication List reviewed and reconciled with the patientDiscontinued dexAMETHasone 2 MG Tablet 1 tablet Orally every 12 hrs Discontinued Gabapentin 300 MG Capsule 1 capsule Orally three times a day Medication List reviewed and reconciled with the patient * Allergies: N o Known Drug Allergyno[Allergies Verified] Objective: * Vitals: H t: 71, Wt: 192, BMI:26.78, BP: 131/84, HR: 84, Temp: 98.6, Wt-k.09. \. * P ast Orders: Lab:Comprehensive [place]. [facility] l Fast * Collection Date 02/08/2024 02/02/2023 02/04/2021 Collection Time 07:29 AM 07:20 AM 07:47 AM Order Date 02/08/2024 02/02/2023 02/04/2021 Sodium 136 (Ref Range: 135-145 mmol/L) 139 (Ref Range: 135-145 mmol/L) 136 (Ref Range: 135-145 mmol/L) Bilirubin Total 0.4 (Ref Range: 0.0-1.0 mg/dL) 0.5 (Ref Range: 0.0-1.0 mg/dL) 0.7 (Ref Range: 0.0-1.0 mg/dL) Aspartate Amino Transferase 33 (Ref Range: 5-37 U/L) 23 (Ref Range: 5-37 U/L) 23 (Ref Range: 5-37 U/L) Alanine Aminotransferase 38 (Ref Range: 0-40 U/L) 23 (Ref Range: 0-40 U/L) 26 (Ref Range: 0-40 U/L) Total Protein 7.9 (Ref Range: 6.5-8.0 g/dL) 7.9 (Ref Range: 6.5-8.0 g/dL) 7.6 (Ref Range: 6.5-8.0 g/dL) Albumin Level 4.4 (Ref Range: 3.5-5.0 g/dL) 4.3 (Ref Range: 3.5-5.0 g/dL) 4.3 (Ref Range: 3.5-5.0 g/dL) Alkaline Phosphatase 123 H (Ref Range: 39-117 U/L) 100 (Ref Range: 39-117 U/L) 104 (Ref Range: 39-117 U/L) Potassium 4.5 (Ref Range: 3.3-5.1 mmol/L) 4.3 (Ref Range: 3.3-5.1 mmol/L) 4.8 (Ref Range: 3.3-5.1 mmol/L) Chloride 103 (Ref Range: 96-108 mmol/L) 104 (Ref Range: 96-108 mmol/L) 102 (Ref Range: 96-108 mmol/L) Carbon Dioxide 22 (Ref Range: 22-29 mmol/L) 27 (Ref Range: 22-29 mmol/L) 27 (Ref Range: 22-29 mmol/L) Anion Gap 16 (Ref Range: 12-20) 12 (Ref Range: 12-20) 12 (Ref Range: 12-20) Blood Urea Nitrogen 8 L (Ref Range: 9-16 mg/dL) 7 L (Ref Range: 9-16 mg/dL) 8 L (Ref Range: 9-16 mg/dL) Creatinine 0.89 (Ref Range: 0.5-1.4 mg/dL) 0.81 (Ref Range: 0.5-1.4 mg/dL) 0.84 (Ref Range: 0.5-1.4 mg/dL) Estimated Glomerular Filt Rate > 60 > 60 > 60 Glucose Fasting 103 H (Ref Range: 60-99 mg/dL) 95 (Ref Range: 60-99 mg/dL) 98 (Ref Range: 60-99 mg/dL) Calcium 9.5 (Ref Range: 8.4-10.2 mg/dL) 9.3 (Ref Range: 8.4-10.2 mg/dL) 9.2 (Ref Range: 8.4-10.2 mg/dL) * Lab:Lipid Panel * Collection Date 02/08/2024 02/02/2023 02/03/2022 Collection Time 07:29 AM 07:20 AM 07:43 AM Order Date 02/08/2024 02/02/2023 02/03/2022 Triglycerides 127 (Ref Range: <150 mg/dL) 101 (Ref Range: <150 mg/dL) 135 (Ref Range: mg/dL) Cholesterol 232 H (Ref Range: <200 mg/dL) 216 H (Ref Range: <200 mg/dL) 226 (Ref Range: mg/dL) LDL Cholesterol Calculated 165 H (Ref Range: <100 mg/dL) 157 H (Ref Range: <100 mg/dL) 158 (Ref Range: mg/dl) HDL Cholesterol 42 (Ref Range: >40 mg/dL) 39 L (Ref Range: >40 mg/dL) 41 (Ref Range: mg/dL) * Lab:Prostate Specific Antige n * Collection Date 02/08/2024 02/04/2021 Collection Time 07:29 AM 07:47 AM Order Date 02/08/2024 02/04/2021 Prostate Specific Antigen 1.90 (Ref Range: <0.05-4.0 ng/mL) 0.91 (Ref Range: <0.05-4.0 ng/mL) * Lab:Complete Blood Count Aut o Diff * Collection Date 02/08/2024 02/02/2023 02/03/2022 Collection Time 07:29 AM 07:20 AM 07:43 AM Order Date 02/08/2024 02/02/2023 02/03/2022 White Blood Count 9.6 (Ref Range: 4.8-10.8 X10*3/uL) 7.6 (Ref Range: 4.8-10.8 X10*3/uL) 9.0 (Ref Range: 4.8-10.8 X10*3/uL) Red Blood Count 5.42 (Ref Range: 4.60-5.80 X10*6/uL) 5.35 (Ref Range: 4.60-5.80 X10*6/uL) 5.32 (Ref Range: 4.60-5.80 X10*6/uL) Hemoglobin 16.1 (Ref Range: 14.0-18.0 g/dl) 15.5 (Ref Range: 14.0-18.0 g/dl) 15.6 (Ref Range: 14.0-18.0 g/dl) Hematocrit 47.5 (Ref Range: 42.0-52.0 %) 46.7 (Ref Range: 42.0-52.0 %) 46.3 (Ref Range: 42.0-52.0 %) Mean Corpuscular Volume 87.6 (Ref Range: 80.0-98.0 fL) 87.3 (Ref Range: 80.0-98.0 fL) 87.0 (Ref Range: 80.0-98.0 fL) Mean Corpuscular Hemoglobin 29.7 (Ref Range: 27.0-33.0 pg) 29.0 (Ref Range: 27.0-33.0 pg) 29.3 (Ref Range: 27.0-33.0 pg) Mean Corpuscular HGB Conc 33.9 (Ref Range: 31.0-36.0 g/dl) 33.2 (Ref Range: 31.0-36.0 g/dl) 33.7 (Ref Range: 31.0-36.0 g/dl) Red Cell Distribution Width 12.9 (Ref Range: 11.0-16.0 %) 13.0 (Ref Range: 11.0-16.0 %) 12.8 (Ref Range: 11.0-16.0 %) Platelet Count 263 (Ref Range: 160-400 X10*3/uL) 271 (Ref Range: 160-400 X10*3/uL) 250 (Ref Range: 160-400 X10*3/uL) Mean Platelet Volume 10.3 (Ref Range: 9.4-12.4 fL) 10.6 (Ref Range: 9.4-12.4 fL) 10.7 (Ref Range: 9.4-12.4 fL) Neutrophils Percent Auto 56.4 (Ref Range: 45-73 %) 57.4 (Ref Range: 45-73 %) 58.4 (Ref Range: 45-73 %) Imm Gran Pct Auto 0.4 (Ref Range: 0.0-0.4 %) 0.4 (Ref Range: 0.0-0.4 %) 0.3 (Ref Range: 0.0-0.4 %) Lymphocytes Percent Auto 31.6 (Ref Range: 20-40 %) 31.9 (Ref Range: 20-40 %) 29.7 (Ref Range: 20-40 %) Monocytes Percent Auto 8.8 (Ref Range: 2-11 %) 7.7 (Ref Range: 2-11 %) 8.9 (Ref Range: 2-11 %) Eosinophils Percent Auto 2.3 (Ref Range: 0-4 %) 1.9 (Ref Range: 0-4 %) 2.0 (Ref Range: 0-4 %) Basophils Percent Auto 0.5 (Ref Range: 0-2 %) 0.7 (Ref Range: 0-2 %) 0.7 (Ref Range: 0-2 %) NRBC Pct Auto 0.0 (Ref Range: 0.0-0.2 /100WBC) 0.0 (Ref Range: 0.0-0.2 /100WBC) 0.0 (Ref Range: 0.0-0.2 /100WBC) Neutrophils Absolute Auto 5.4 (Ref Range: 2.0-8.3 x10*3/uL) 4.4 (Ref Range: 2.0-8.3 x10*3/uL) 5.3 (Ref Range: 2.0-8.3 x10*3/uL) Imm Gran Abs Auto 0.04 H (Ref Range: 0.00-0.03 X10*3/uL) 0.03 (Ref Range: 0.00-0.03 X10*3/uL) 0.03 (Ref Range: 0.00-0.03 X10*3/uL) Lymphocytes Absolute Auto 3.0 (Ref Range: 1.2-4.9 X10*3/uL) 2.4 (Ref Range: 1.2-4.9 X10*3/uL) 2.7 (Ref Range: 1.2-4.9 X10*3/uL) Monocytes Absolute Auto 0.8 (Ref Range: 0.1-1.2 X10*3/uL) 0.6 (Ref Range: 0.1-1.2 X10*3/uL) 0.8 (Ref Range: 0.1-1.2 X10*3/uL) Eosinophils Absolute Auto 0.2 (Ref Range: 0.0-0.4 X10*3/uL) 0.1 (Ref Range: 0.0-0.4 X10*3/uL) 0.2 (Ref Range: 0.0-0.4 X10*3/uL) Basophils Absolute Auto 0.1 (Ref Range: 0.0-0.2 X10*3/uL) 0.1 (Ref Range: 0.0-0.2 X10*3/uL) 0.1 (Ref Range: 0.0-0.2 X10*3/uL) NRBC Abs Auto 0.000 (Ref Range: 0.0-0.012 X10*3/uL) 0.000 (Ref Range: 0.0-0.012 X10*3/uL) 0.000 (Ref Range: 0.0-0.012 X10*3/uL) * Examination: G eneral Examination: GENERAL APPEARANCE: p leasant, well nourished, well developed, in no acute distress, calm and relaxed, overweight, man. HEAD: a traumatic, normocephalic. EYES: e dante, perrla, anicteric, conjugate. EARS: n ormal. NOSE: s eptum intact. ORAL CAVITY: n ormal, unremarkable. NECK/THYROID: n o jugular venous distention, no carotid bruit, thyroid normal. LYMPH NODES: n o enlarged lymph nodes,spleen normal. SKIN: n o suspicious lesions, anicteric Severe acne over most of his back. HEART: n o clicks, gallops, murmurs, or rubs, regular rhythm, S1, S2 normal, no s3, or vascular bruits. LUNGS: c lear to auscultation . BREASTS: no masses palpable bilaterally. ABDOMEN: b owel sounds normal, no ascites, no organomegaly, no mass, overweight, overweight. RECTAL EXAM: n ot examined. MUSCULOSKELETAL: e xtremities unremarkable, no clubbing, cyanosis or edema. PERIPHERAL PULSES: n ormal. NEUROLOGIC: a lert and oriented, cranial nerves 2-12 grossly intact, deep tendon reflexes 2+ symmetrical, motor strength normal upper and lower extremities, sensory exam intact. PSYCH: a lert, oriented. Assessment: * Assessment: 1. T obacco dependence - F17.200 (Primary) N otes :We discussed smoking cessation at length. I made him aware of smoke [place] and of the smoking cessation programs at all of the local hospitals. 2 . C ervical radiculopathy - M54.12 N otes :His neck pain is still present but much improved. It is an intermittent nuisance at this point. He will avoid heavy lifting and then do exertion. 3 . G ERD without esophagitis - K21.9 N otes :He is using [id number] medication like liquid antacid and omeprazole with good results. 4 . A cne vulgaris - L70.0 N otes :I have reinstituted doxycycline 100 mg once a day to control the activity which is much worse on his back. If necessary, he will return to the unit aide. I recommended he resume the use of benzoyl peroxide. 5 . O verweight - E66.3 N otes :His weight has increased 7 pounds to 192. His body mass index is 26.78.. He is very slightly overweight. We discussed diet and nutrition. We made a plan to lose weight at a rate of one half of a pound per week until a body mass index is in the normal range. Plan: * Treatment: * Labs: * L ab: URINE DIP STICK (Collection Date & Time - 02/19/2024) Value Reference Range S G 1.010 1.005 - 1.025 * p H 6.0 5.0 - 9.0 * L EU Negative Negative - * N IT Negative Negative - * P RO 15 Negative - Trace * G JOANNA Negative Negative - * K ET 5 Negative - * U BG 0.2 0.1 - 1.8 * B IL Negative 0.2 - 1.3 * B LD 50 Negative - * Procedure Codes: 8 1002 URINE-NO MICRO * Preventive Medicine: Counseling: C are goal follow-up plan: Counseling for abnormal BMI given Y es Above Normal BMI Follow-up D ietary management education, guidance, and counseling, Dietary needs education, Exercise promotion: strength training, Exercise promotion: stretching, Feeding regime, Giving encouragement to exercise, Lifestyle education regarding diet, Nutrition / feeding management, Nutrition therapy, Prescribed activity/exercise education, Prescribed diet education, Prescribed dietary intake, Special diet education, Weight monitoring , Intervention, Order not done: Medical or Other reason not done S moking/Tobacco Use Patient counseled on the dangers of tobacco use and urged to quit. 1 04/21/2023 Patient Lifestyle Goals P atient wants to quit Treatment Goals S et a quit date, Cut down by 1 cigarette a week Barriers S tress, Social smoker Self-Management Plan M moose a plan to cut down number of cigarettes over time and set a date to work towards quitting A lcohol and drugs . * Follow Up: 2 Months, In a couple of months (Reason: OV, To assess the effectiveness of the acne treatment and monitor the patient's overall health.) * Images: * Sign off status: Completed true * Provider: Brianda Valencia MD Date: 04/21/2023 Generated for Ricky villarreal/Keyanna/Vikki on: 04/15/2024 07:05 AM EST History and Physical Notes * HPI (History of Present Illness) Category Sub-Category Detail Notes Depression Screening PHQ-9 Little inte rest or pleasure in doing things: Not at all Feeling down, depressed, or hopeless: No t at all Trouble falling or staying asleep, or sl eeping too much: Not at all Feeling tired or having little energy: N ot at all Poor appetite or overeating: Not at all Feeling bad about yourself o r that you are a failure, or have let yourself or your family down: Not at all Trouble concentrating on thi ngs, such as reading the newspaper or watching television: Not at all Moving or speaking so slowly that other people could have noticed; or the opposite, being so fidgety or restless that you have been moving around a lot more than usual: Not at all Thoughts that you would be b stephanie off or of hurting yourself in some way: Not at all Total Score: 0 COVID-19 Screening Questions Have you had any new onset fever, chills, cough, congestion, sore throat, shortness of breath, muscle aches?: No Have you been exposed to the virus withi n the last 10 days?: No Have you travelled internationally in e last 10 days?: No Have you been exposed to COVID-19 in the past?: No SDOH Questions SDOH Questions In the past year have you been worried about losing your housing?: No In the past year have you or any family members you live with been unable to get any of the following when it was really needed? Check all that apply:: None Examination Category Sub-Category Detail Notes General Examination GENERAL APPEARANCE: pleasant , well nourished, well developed, in no acute distress, calm and relaxed, overweight, man HEAD: atraumatic, normocep halic EYES: eomi, perrla, anicte or[place], conjugate EARS: normal NOSE: septum intact NECK/THYROID: no jugular venous di stention, no carotid bruit, thyroid normal HEART: no clicks, gallops, murmurs, or rubs, regular rhythm, S1, S2 normal, no s3, or vascular bruits LUNGS: clear to auscultatio n ABDOMEN: bowel sounds normal, no ascites, no organomegaly, no mass, overweight, overweight NEUROLOGIC: alert and oriented, cranial nerves 2-12 grossly intact, deep tendon reflexes 2+ symmetrical, motor strength normal upper and lower extremities, sensory exam intact SKIN: no suspicious lesion s, anicteric Severe acne over most of his back PERIPHERAL PULSES: normal BREASTS: no masses palpable b ilaterally MUSCULOSKELETAL: extremities unremark able, no clubbing, cyanosis or edema LYMPH NODES: no enlarged lymph no alondra,spleen normal RECTAL EXAM: not examined PSYCH: alert, oriented ORAL CAVITY: normal, unremarkable
--- OUTSIDE RECORDS SUMMARY | 2024-05-08 10:30 | XMS_ITS ---
Author Organization Ambrocio Valencia III, MD Address [address] [place] [address] [place] [address] Care Team Providers Care Health Advisor Name Role Phone Dr. Ambrocio Valencia III Primary Care Provider Allergies Allergen (clinical drug ingredient) Drug/Non Drug Allergy documented on EMR Reaction Allergy Type Onset Date Status Information temporarily unavailable No Known Drug Allergy Unknown Drug Allergy Active Results Component Value Reference Range Notes XR cervical spine 3V Reviewed date:01/04/2025 04:42:24 AM Interpretation: Performing Lab: Notes/Report: [facility] [address] [place] [id number] XRay Report Signed Patient: Power Kong MR#: [id number] : 1985 Acct:[id number] Age/Sex: 38 / M ADM Date: 05/09/24 Loc: HO.XRAY Attending Dr: Ambrocio Valencia MD Ordering Physician: Ambrocio Valencia MD Date of Service: 05/09/24 Procedure(s): XR cervical spine 3V Accession Number(s): [id number] cc: Ambrocio Valencia MD CLINICAL HISTORY: NECK PAIN 4 views cervical spine Comparison: None Findings: Normal vertebral body alignment. No acute fractures or dislocation. No significant degenerative change. Prevertebral soft tissues within normal limits. IMPRESSION: No acute findings. This document has been electronically signed by: Randall Hernandez MD on 05/11/2024 11:49:53 Dictated By: Randall Hernandez MD Signed By: <Electronically signed by Randall Hernandez MD in OV> 05/11/24 1151 DD/ 1149 TD/TT: 05/11/24 1149 Final Assembler: [address] [address] XRay Report Signed Patient: Curt Kong MR#: [id number] : 1985 Acct:[id number] Age/Sex: 38 / M ADM Date: 05/09/24 Loc: HO.XRAY Attending Dr: Ambrocio Valencia MD Ordering Physician: Ambrocio Valencia MD Date of Service: 05/09/24 Procedure(s): XR cer vical spine 3V Accession Number(s): [id number] cc: Ambrocio Valencia MD CLINICAL HISTORY: NECK PAIN 4 views cervical spine Comparison: None Findings: Normal vertebral bod y alignment. No acute fractures o r dislocation. No significant degen erative change. Prevertebral soft ti ssues within normal limits. IMPRESSION: No acute findings. This document has be en electronically signed by: Randall Hernandez MD on 05/11/2024 11:49:53 Dictated By: Randall Hernandez MD Signed By: <Electron icallfelice signed by Randall Hernandez MD in OV> 05/11/24 1151 DD/ 1149 TD/TT: 05/11/24 1149 Final Assembler: REASON FOR VISIT GERD, Neck pain, Tobacco dependence, Actually vulgarities Medications Medication SIG (Take, Route, Frequency, Duration) Notes Start Date End Date Status Doxycycline Hyclate 100 MG 1 capsule Ora lly Once a day 02/19/2024 Active Social History Tobacco Use: Social History [...] user Modera te cigarette smoker (10-19 cigs/day) Problems Problem Type SNOMED Code ICD Code Onset Dates Problem Status W/U Status Risk Notes Problem [id number] Cervical radiculopathy (M54.12) Active confirmed His neck pain is still present but much improved. It is an intermittent nuisance at this point. He will avoid heavy lifting and then do exertion. Problem Information temporarily unavailable Shoulder pain, left (M25.512) Active confirmed This is a muscular pain located over the scapula. I have advised to rest and ibuprofen. If it does not resolve he will have a referral to orthopedics. Vital Signs Temperature 98.1 degrees Fahrenheit 05/08/19 25 Blood pressure systolic 138 mm Hg 05/08/19 25 Blood pressure diastolic 71 mm Hg 025 Heart Rate 85 /min 05/08/2024 Height 71 in 05/08/2024 Weight 196 lbs 05/08/2024 BMI 27.33 kg/m2 05/08/2024 Encounters Encounter Location Date Provider Diagnosis Ambrocio Valencia III, MD [address] [place] [address] [place] [address] 05/08/2024 Ambrocio Valencia Cervical radiculopat hy M54.12 ; Shoulder pain, left M25.512 ; Chronic superficial gastritis without bleeding K29.30 ; GERD without esophagitis K21.9 ; Hypercholesterolemia E78.00 ; Overweight E66.3 and Acne vulgaris L70.0 Assessments Encounter Date Diagnosis (ICD Code) Assessment Notes T reatment Notes Treatment Clinical Notes 05/08/2024 Cervical radiculopat hy (ICD-10 - M54.12) His neck pain is still present but much improved. It is an intermittent nuisance at this point. He will avoid heavy lifting and then do exertion. 05/08/2024 Shoulder pain, left (ICD-10 - M25.512) This is a muscular pain located over the scapula. I have advised to rest and ibuprofen. If it does not resolve he will have a referral to orthopedics. 05/08/2024 Chronic superficial gastritis without bleeding (ICD-10 - K29.30) He has had no symptoms of gastritis or of GERD since his last visit. He was directed to use omeprazole and liquid antacid if these occur. 05/08/2024 GERD without esophag itis (ICD-10 - K21.9) He is using isge-nxg-yxqvtvt medication like liquid antacid and omeprazole with good results. 05/08/2024 Hypercholesterolemia (ICD-10 - E78.00) The current fasting lipid profile shows his total cholesterol to be slightly elevated and the LDL 57. He is slightly overweight. We reviewed his diet and nutrition. He does not wish to take a statin medication. He will lose weight and try to consume a healthy diet restricted in fat and calories and sodium. His lipid proffile will be repeated in the near future. 05/08/2024 Overweight (ICD-10 - E66.3) His weight has increased 7 pounds to 192. His body mass index is 26.78.. He is very slightly overweight. We discussed diet and nutrition. We made a plan to lose weight at a rate of one half of a pound per week until a body mass index is in the normal range. 05/08/2024 Acne vulgaris (ICD-1 0 - L70.0) He will continue long-term on doxycycline. He says he is unable to reach the affected skin to apply benzoyl peroxide. He has declined an offer referral back to dermattology. Plan Of Treatment Medication Medication Name Sig Start Date Stop Date Notes Doxycycline Hyclate 100 MG 1 capsule Orally Once a day 06/2023 Pending Test Test Name Order Date XR SHOULDER LT 2 VIEWS 05/08/2024 Next Appt Details Follow Up: 2 Weeks, Reason: Telehealth Provider Name:Ambrocio Valencia , 02/22/2025 04:00:00 PM, [address] [place] [address] [address] [place] [address], [place], [address], Progress Notes * Maximus KONG: 6 (38 yo M)Acc No.[id number]:05/08/2024 Progress Notes Patient: Power HINDS Provider: Brianda Valencia MD :1985 A ge:38 Y S ex:Male Date:05/08/2024 Address:[address] [place], [place] [id number] Subjective: * Chief Complaints: * Rajani Herbert painTobacco dependenceActually vulgarities * HPI: C OVID-19 Screening: He continues to have pain in his neck with range of motion which radiates into the left shoulder.? It is neither worse nor better potassium. The quality of his life makes driving difficult. The acne is slightly improved on the doxycycline but is still significant and present. I offered to refer him to a art gallery director but he declined saying he has been to a art gallery director past and they did not help the acne which is mostly located on his back. He denies any recent chest pain or shortness of breath. His gastritis as well controlled and his esophageal reflux is only an occasional sensation. He is breathing comfortably and denies any diarrhea or constipation nausea or recent infectious illness. Questions H ave you had any new onset fever, chills, cough, congestion, sore throat, shortness of breath, muscle aches? N o * ROS: G eneral/Constitutional: pain W ith range of motion of the neck. C hills d enies. F atigue a dmits. F ever d enies. E NT: Decreased hearing d enies. R espiratory: Cough n on-productive. C ardiovascular: Chest pain with exertion d enies. D yspnea on exertion?denies. S hortness of breath d enies. G astrointestinal: Constipation o ccasional. D ecreased appetite d enies. D iarrhea d enies. H eartburn c ontrolled with medications. N ausea d enies. R ectal bleeding d enies. V omiting d enies. [...] user M oderate cigarette smoker (10-19 cigs/day) H e smokes a half a packages of cigarettes per day. He is single and has no children. He was born and [place], [place]. 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 He has no toxic exposures but is required to lift heavy weights all day long. * Medications: T akingDoxycycline Hyclate 100 MG Capsule 1 capsule Orally Once a day , stop date 08/17/2024Medication List reviewed and reconciled with the patientTaking Doxycycline Hyclate 100 MG Capsule 1 capsule Orally Once a day , stop date 08/17/2024Medication List reviewed and reconciled with the patient * Allergies: N o Known Drug Allergyno[Allergies Verified] Objective: * Vitals: H t: 71, Wt: 196, BMI:27.33, BP: 138/71, HR: 85, Temp: 98.1, Wt-k.9. * P ast Orders: Lab:URINE DIP STICK * Collection Date 02/19/2024 02/15/2023 02/13/2021 Collection Time 04:06 PM Order Date 02/19/2024 02/15/2023 02/13/2021 SG 1.010 (Ref Range: 1.005 - 1.025) 1.015 (Ref Range: 1.005 - 1.025) 1.030 pH 6.0 (Ref Range: 5.0 - 9.0) 6.5 (Ref Range: 5.0 - 9.0) 6.0 SHAILESH Negative (Ref Range: Negative -) Negative (Ref Range: Negative -) Negative NIT Negative (Ref Range: Negative -) Negative (Ref Range: Negative -) Negative PRO 15 (Ref Range: Negative - Trace) 15 (Ref Range: Negative - Trace) 30 GLU Negative (Ref Range: Negative -) Negative (Ref Range: Negative -) Negative KET 5 (Ref Range: Negative -) Negative (Ref Range: Negative -) Negative UBG 0.2 (Ref Range: 0.1 - 1.8) 0.2 (Ref Range: 0.1 - 1.8) 0.2 NARENDRA Negative (Ref Range: 0.2 - 1.3) Negative (Ref Range: 0.2 - 1.3) Negative BLD 50 (Ref Range: Negative -) 5-10 (Ref Range: Negative -) 50 Jimmy * Lab:Complete Blood Count Aut o Diff [...] X10*3/uL) 0.000 (Ref Range: 0.0-0.012 X10*3/uL) * Lab:[facility] Fast * Collection Date 02/08/2024 02/02/2023 02/04/2021 [...] ng/mL) 0.91 (Ref Range: <0.05-4.0 ng/mL) * Examination: G eneral Examination: GENERAL APPEARANCE: p leasant, well nourished, well developed, in no acute distress, calm and relaxed, overweight, man. HEAD: a traumatic, normocephalic. EYES: e dante, perrla, anicteric, conjugate. EARS: n ormal. NOSE: s eptum intact. ORAL CAVITY: n ormal, unremarkable. NECK/THYROID: n o jugular venous distention, no carotid bruit, thyroid normal, Mild decreased range of motion of neck, pain to lateral flexion. LYMPH NODES: n o enlarged lymph nodes,spleen normal. SKIN: n o suspicious lesions, anicteric, Severe acne located primarily on his back. HEART: n o clicks, gallops, murmurs, or rubs, regular rhythm, S1, S2 normal, no s3, or vascular bruits. LUNGS: c lear to auscultation . BREASTS: no masses palpable bilaterally. ABDOMEN: b owel sounds normal, no ascites, no organomegaly, no mass, overweight. RECTAL EXAM: n ot examined. MUSCULOSKELETAL: e xtremities unremarkable, no clubbing, cyanosis or edema, Decreased range of motion cervical spine. PERIPHERAL PULSES: n ormal. NEUROLOGIC: a lert and oriented, cranial nerves 2-12 grossly intact, deep tendon reflexes 2+ symmetrical, motor strength normal upper and lower extremities, sensory exam intact. PSYCH: a lert, oriented. Assessment: * Assessment: 1. C ervical radiculopathy - M54.12 (Primary) N otes :His neck pain is still present but much improved. It is an intermittent nuisance at this point. He will avoid heavy lifting and then do exertion. 2 . S houlder pain, left - M25.512 N otes :This is a muscular pain located over the scapula. I have advised to rest and ibuprofen. If it does not resolve he will have a referral to orthopedics. 3 . C hronic superficial gastritis without bleeding - K29.30 N otes :He has had no symptoms of gastritis or of GERD since his last visit. He was directed to use omeprazole and liquid antacid if these occur. 4 . G ERD without esophagitis - K21.9 N otes :He is using donv-eiv-turrzag medication like liquid antacid and omeprazole with good results. 5 . H ypercholesterolemia - E78.00 N otes :The current fasting lipid profile shows his total cholesterol to be slightly elevated and the LDL 57. He is slightly overweight. We reviewed his diet and nutrition. He does not wish to take a statin medication. He will lose weight and try to consume a healthy diet restricted in fat and calories and sodium. His lipid proffile will be repeated in the near future. 6 . O verweight - E66.3 N otes :His weight has increased 7 pounds to 192. His body mass index is 26.78.. He is very slightly overweight. We discussed diet and nutrition. We made a plan to lose weight at a rate of one half of a pound per week until a body mass index is in the normal range. 7 . A cne vulgaris - L70.0 N otes :He will continue long-term on doxycycline. He says he is unable to reach the affected skin to apply benzoyl peroxide. He has declined an offer referral back to dermattology. Plan: * Treatment: 2. S houlder pain, left I maging: XR SHOULDER LT 2 VIEWS * Imaging: * I maging: XR cervical spine 3V * Procedure Codes: * Preventive Medicine: Counseling: C are goal [...] of tobacco use and urged to quit. 0 05/08/2024 Patient Lifestyle Goals P atient wants to quit Treatment Goals C ut down by 1 cigarette a week, Set a quit date Barriers S tress, Social smoker Self-Management Plan M moose a plan to cut down number of cigarettes over time and set a date to work towards quitting * Follow Up: 2 Weeks (Reason: Telehealth) * Images: * Sign off status: Completed true * Provider: Brianda Valencia MD Date: 0 05/08/2024 Generated for Ricky villarreal/Keyanna/Vikki on: 04/15/2024 07:05 AM EST History and Physical Notes * HPI (History of Present Illness) Category Sub-Category Detail Notes COVID-19 Screening Questions Have you had any new onset fever, chills, cough, congestion, sore throat, shortness of breath, muscle aches?: No Examination Category Sub-Category Detail Notes General Examination GENERAL APPEARANCE: pleasant , well nourished, well developed, in no acute distress, calm and relaxed, overweight, man HEAD: atraumatic, normocep halic EYES: eomi, perrla, anicte [place], conjugate EARS: normal NOSE: septum intact NECK/THYROID: no jugular venous di stention, no carotid bruit, thyroid normal, Mild decreased range of motion of neck, pain to lateral flexion HEART: no clicks, gallops, murmurs, or rubs, regular rhythm, S1, S2 normal, no s3, or vascular bruits LUNGS: clear to auscultatio n ABDOMEN: bowel sounds normal, no ascites, no organomegaly, no mass, overweight NEUROLOGIC: alert and oriented, cranial nerves 2-12 grossly intact, deep tendon reflexes 2+ symmetrical, motor strength normal upper and lower extremities, sensory exam intact SKIN: no suspicious lesion s, anicteric, Severe acne located primarily on his back PERIPHERAL PULSES: normal BREASTS: no masses palpable b ilaterally MUSCULOSKELETAL: extremities unremark able, no clubbing, cyanosis or edema, Decreased range of motion cervical spine LYMPH NODES: no enlarged lymph no alondra,spleen normal RECTAL EXAM: not examined PSYCH: alert, oriented ORAL CAVITY: normal, unremarkable
--- OUTSIDE RECORDS SUMMARY | 2024-05-22 10:15 | XMS_ITS ---
Author Organization Ambrocio Valencia III, MD Address [address] [place] [address] [place] [address] Care Team Providers Care Bar Supervisor Name Role Phone Dr. Ambrocio Valencia III Primary Care Provider [phone] Allergies Allergen (clinical drug ingredient) Drug/Non Drug Allergy documented on EMR Reaction Allergy Type Onset Date Status Information temporarily unavailable No Known Drug Allergy Unknown Drug Allergy Active REASON FOR VISIT Telehealth Medications Medication SIG (Take, Route, Frequency, Duration) Notes Start Date End Date Status Doxycycline Hyclate 100 MG 1 capsule Ora lly Once a day 02/19/2024 Active Social History Tobacco Use: Social History Observation Description Date Details (start date - stop date) Current Smoker NA - NA Sex Assigned At : Social History Observation Description Sex Assigned At Male Tobacco Control (Standard) Question Answer Notes Tobacco use: Current smoker How often do you smoke cigarettes? Every day How many cigarettes a day do you smoke? 11-20 How soon after you wake up d o you smoke your first cigarette? 31-60 minutes Are you interested in quitting? Thinking about q uitting Additional Findings: Tobacco user Modera te cigarette smoker (10-19 cigs/day) Vital Signs Height 71 in 05/22/2024 Weight 196 lbs 05/22/2024 BMI 27.33 kg/m2 05/22/2024 Encounters Encounter Location Date Provider Diagnosis Ambrocio Valencia III, MD [address] [place] [address] [place] [address] 05/22/2024 Ambrocio Valencia Cervical radiculopat hy M54.12 ; Tobacco dependence F17.200 ; Hypercholesterolemia E78.00 ; Chronic superficial gastritis without bleeding K29.30 ; GERD without esophagitis K21.9 ; Overweight E66.3 and Shoulder pain, left M25.512 Assessments Encounter Date Diagnosis (ICD Code) Assessment Notes T reatment Notes Treatment Clinical Notes 05/22/2024 Cervical radiculopat hy (ICD-10 - M54.12) His neck pain is still present but much improved. It is an intermittent nuisance at this point. He will avoid heavy lifting and then do exertion. 05/22/2024 Tobacco dependence (ICD-10 - F17.200) We discussed smoking cessation at length. I made him aware of smoke [place] and of the smoking cessation programs at all of the local hospitals. 05/22/2024 Hypercholesterolemia (ICD-10 - E78.00) The current fasting [...] will be repeated in the near future. 05/22/2024 Chronic superficial gastritis without bleeding (ICD-10 - K29.30) He has had no symptoms of gastritis or of GERD since his last visit. He was directed to use omeprazole and liquid antacid if these occur. 05/22/2024 GERD without esophag itis (ICD-10 - K21.9) He is using [id number] medication like liquid antacid and omeprazole with good results. 05/22/2024 Overweight (ICD-10 - E66.3) His weight has increased 7 pounds to 192. His body mass index is 26.78.. He is very slightly overweight. We discussed diet and nutrition. We made a plan to lose weight at a rate of one half of a pound per week until a body mass index is in the normal range. 05/22/2024 Shoulder pain, left (ICD-10 - M25.512) This is a muscular pain located over the scapula. I have advised to rest and ibuprofen. If it does not resolve he will have a referral to orthopedics. Plan Of Treatment Medication Medication Name Sig Start Date Stop Date Notes Doxycycline Hyclate 100 MG 1 capsule Orally Once a day 06/2023 Next Appt Details Follow Up: 3 Months, Reason: OV Provider Name:Ambrocio Valencia , 02/22/2025 04:00:00 PM, [address] [place] [address] [address], [address], [place], [address], Progress Notes * Power KONGDOB: [birth year] (38 yo M)Acc No.[id number]:05/22/2024 Patient: Power HINDS Provider: Brianda Valencia MD :1985 A ge:38 Y S ex:Male Date:05/22/2024 Address:[address] [place], [place] [id number] Subjective: * Chief Complaints: * T elehealth * HPI: * : Telehealth L ocation of provider rendering services: { ...} [address] [place] [address] Drive [address] [facility], [place] [address] L ocation of patient: a ddress listed in demographics for today's visit P atient identification confirmed using: KAYA Ferrell ame T elehealth method: T elephone only. Patient not visible to care provider. C onsent: P atient verbally consented to treatment, Patient verbally consented to billing insurance company, Patient informed of any privacy concerns related to method of visit T otal time spent with patient (mins) 1 5 The patient has been experiencing pain In his neck and left shoulder with elevation for several months. The severity of the pain has remained constant. The patient underwent X-rays of the neck and shoulder. The results of the X-rays showed that the alignment of the bones was normal. There was no significant abnormality on the plain films. Beginning to improve. Offered to refer him to orthopedics MRI of the area but he declined saying nothing was necessary beginning to improve. * ROS: G eneral/Constitutional: pain H e has pain in his neck with range of motion radiates into the shoulder. Shoulder also is painful with elevation of the left arm. . C hills d enies. F atigue a dmits. F ever d enies. E NT: Decreased hearing d enies. R espiratory: Cough n on-productive. C ardiovascular: Chest pain with exertion d enies. D yspnea on exertion?denies. S hortness of breath d enies. G astrointestinal: Constipation a dmits. D ecreased appetite d enies.?Diarrhea d enies. H eartburn d enies. N ausea d enies. R ectal bleeding?denies. V omiting d enies. H ematology: bruising d enies. p etechiae d enies. S wollen glands n one have been noted. G enitourinary: Frequent urination o nce a night. M usculoskeletal: Muscle aches d enies. P ainful joints d enies. S ciatica d enies. W eakness d enies. S kin: Itching d enies. R beth d enies. S kin lesion(s)?denies. N eurologic: Difficulty speaking d enies. D izziness d enies.?Headache d enies. L ow back pain d enies. P sychiatric: Depressed mood w hich is mild. * Medical History: * Surgical History: h [...] Social History: T obacco Use: T obacco Control (Standard) T obacco use: C urrent [...] has no children. He was born and [place], [place]. 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 He has no toxic exposures but is required to lift heavy weights all day long. * Medications: T akingDoxycycline Hyclate 100 MG Capsule 1 capsule Orally Once a day Medication List reviewed and reconciled with the patientTaking Doxycycline Hyclate 100 MG Capsule 1 capsule Orally Once a day Medication List reviewed and reconciled with the patient * Allergies: N o Known Drug Allergyno[Allergies Verified] Objective: * Vitals: H t: 71, Wt: 196, BMI:27.33, Ht-cm: 180.34, Wt-k.9. * Examination: - : X -ray shoulder:Normal bone alignment X-ray neck:Normal bone alignment. Assessment: * Assessment: 1. C ervical radiculopathy - M54.12 (Primary) N otes :His neck pain is still present but much improved. It is an intermittent nuisance at this point. He will avoid heavy lifting and then do exertion. 2 . T obacco dependence - F17.200 N otes :We discussed smoking cessation at length. I made him aware of smoke [place] and of the smoking cessation programs at all of the local hospitals. 3 . H ypercholesterolemia - E78.00 N otes [...] will be repeated in the near future. 4 . C hronic superficial gastritis without bleeding - K29.30 N otes :He has had no symptoms of gastritis or of GERD since his last visit. He was directed to use omeprazole and liquid antacid if these occur. 5 . G ERD without esophagitis - K21.9 N otes :He is using mxvu-kbv-jjwjjue medication like liquid antacid and omeprazole with good results. 6 . O verweight - E66.3 N otes :His weight has increased 7 pounds to 192. His body mass index is 26.78.. He is very slightly overweight. We discussed diet and nutrition. We made a plan to lose weight at a rate of one half of a pound per week until a body mass index is in the normal range. 7 . S houlder pain, left - M25.512 N otes :This is a muscular pain located over the scapula. I have advised to rest and ibuprofen. If it does not resolve he will have a referral to orthopedics. Plan: * Treatment: * Procedure Codes: * Preventive Medicine: Counseling: [...] tobacco use and urged to quit. 0 05/28/2024 Patient Lifestyle Goals P atient wants to quit Treatment Goals S et a quit date, Cut down by 1 cigarette a week Barriers S ocial smoker, Stress Self-Management Plan M moose a plan to cut down number of cigarettes over time and set a date to work towards quitting * Follow Up: 3 Months (Reason: OV) * Images: * Sign off status: Completed true * Provider: Brianda Valencia MD Date: 0 05/22/2024 Generated for Ricky villarreal/Keyanna/eTransmitting on: 04/15/2024 07:04 AM EST History and Physical Notes * HPI (History of Present Illness) Category Sub-Category Detail Notes Telehealth Location of [facility] rendering services:: {...} [address] [facility], [place] [address] Location of patient:: address listed in demographics for today's visit Patient identification confirmed using:: Name, Telehealth method:: Telephone only. Elizabeth ent not visible to care provider. Consent:: Patient verbally c onsented to treatment, Patient verbally consented to billing insurance company, Patient informed of any privacy concerns related to method of visit Total time spent with patient (mins): 15
--- OUTSIDE RECORDS SUMMARY | 2024-08-24 10:00 | XMS_ITS ---
Author Organization Ambrocio Valencia III, MD Address [address] [place] [address] Care Team Providers Care Long Term Name Role Phone Dr. Ambrocio Valencia III Primary Care Provider Allergies Allergen (clinical drug ingredient) Drug/Non Drug Allergy documented on EMR Reaction Allergy Type Onset Date Status Information temporarily unavailable No Known Drug Allergy Unknown Drug Allergy Active REASON FOR VISIT Acne vulgaris, Gastritis, Tobacco dependencee, Cervical radiculopathy, Left shoulder pain Social History Tobacco Use: Social History Observation [...] te cigarette smoker (10-19 cigs/day) Vital Signs Temperature 98.6 degrees Fahrenheit 08/25/19 25 Blood pressure systolic 140 mm Hg 08/25/19 25 Blood pressure diastolic 80 mm Hg 025 Heart Rate 83 /min 08/24/2024 Height 71 in 08/24/2024 Weight 193 lbs 08/24/2024 BMI 26.92 kg/m2 08/24/2024 Encounters Encounter Location Date Provider Diagnosis Ambrocio Valencia III, MD [address] [place] [address] [place] [address] 08/24/2024 Ambrocio Valencia Hypercholesterolemia E78.00 ; Tobacco dependence F17.200 ; GERD without esophagitis K21.9 ; Overweight E66.3 ; Cervical radiculopathy M54.12 ; Acne vulgaris L70.0 and Shoulder pain, left M25.512 Assessments Encounter Date Diagnosis (ICD Code) Assessment Notes T reatment Notes Treatment Clinical Notes 08/24/2024 Hypercholesterolemia (ICD-10 - E78.00) His cholesterol was 232 in January 2025. A fasting lipid profile has been ordered prior to his next visit. We discussed his diet today. 08/24/2024 Tobacco dependence (ICD-10 - F17.200) We discussed smoking cessation at length. I made him aware of smoke [place] and of the smoking cessation programs at all of the local hospitals. 08/24/2024 GERD without esophag itis (ICD-10 - K21.9) We have ddiscussed the use of omeprazole to control chronic heartburn. He will also use of liquid antacid for instant relief. 08/24/2024 Overweight (ICD-10 - E66.3) His body mass index is 26.9. We discussed diet and nutrition today. We made a plan to lose weight at a rate of one half of a pound per week. 08/24/2024 Cervical radiculopat hy (ICD-10 - M54.12) His neck pain is still present but much improved. It is an intermittent nuisance at this point. He will avoid heavy lifting and then do exertion. 08/24/2024 Acne vulgaris (ICD-1 0 - L70.0) He will continue long-term on doxycycline. He says he is unable to reach the affected skin to apply benzoyl peroxide. He has declined an offer referral back to dermattology. 08/24/2024 Shoulder pain, left (ICD-10 - M25.512) This is a muscular pain located over the scapula. I have advised to rest and ibuprofen. If it does not resolve he will have a referral to orthopedics. Plan Of Treatment Pending Test Test Name Order Date PROFILE, FASTING (COMPREHENSIVE METABOLI C) 08/24/2024 CBC w DIFF 08/24/2024 Lipid Panel 08/24/2024 Next Appt Details Follow Up: as scheduled, Elsie son: ov review labs Provider Name:Ambrocio Valencia , 02/22/2025 04:00:[address], [address], [place], [address], Progress Notes * Power KONGDOB: [birth year] (39 yo M)Acc No.[id number]:08/24/2024 Progress Notes Patient: Power HINDS Provider: Brianda Valencia MD :1985 A ge:39 Y S ex:Male Date:08/24/2024 Address:[address] [place] [address] EVELIN Payton [id number] Subjective: * Chief Complaints: * A cne vulgarisGastritisTobacco dependenceeCervical radiculopathyLeft shoulder pain * HPI: C OVID-19 Screening: Teddy payton returns for a scheduled followup for management of his medical issues. His left shoulder is much better recently with less pain and more range of motion. His acne has improved on the doxycycline which she takes once a day. He continues to smoke cigarettes and to try to cut down on his usage. His neck is pain-free today. The left shoulder pain again is much improved. Questions H ave you had any new onset fever, chills, cough, congestion, sore throat, shortness of breath, muscle aches? N o * ROS: G eneral/Constitutional: pain N sherrell and left shoulder but improved. C hills d enies. F atigue a dmits. F ever d enies. E NT: Decreased hearing d enies. R espiratory: Cough n on-productive. C ardiovascular: Chest pain with exertion d enies. D yspnea on exertion?denies. S hortness of breath d enies. G astrointestinal: Constipation d enies. D ecreased appetite d enies.?Diarrhea d enies. [...] S kin: Itching d enies. R beth I mproved acne on back. S kin lesion(s) d enies. N eurologic: Difficulty speaking d enies. D [...] has no children. He was born and [place], [place]. 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 He has no toxic exposures but is required to lift heavy weights all day long. * Medications: D iscontinuedDoxycycline Hyclate 100 MG Capsule TAKE 1 CAPSULE BY MOUTH EVERY DAY FOR 30 DAYS Medication List reviewed and reconciled with the patientDiscontinued Doxycycline Hyclate 100 MG Capsule TAKE 1 CAPSULE BY MOUTH EVERY DAY FOR 30 DAYS Medication List reviewed and reconciled with the patient * Allergies: N o Known Drug Allergyno[Allergies Verified] Objective: * Vitals: H t: 71, Wt: 193, BMI:26.92, BP: 140/80, HR: 83, Temp: 98.6, Ht-cm: 180.34, Wt-k.54. * Examination: G eneral Examination: GENERAL APPEARANCE: p lety, well nourished, well developed, in no acute distress, calm and relaxed, overweight, man. HEAD: a traumatic, normocephalic. EYES: e dante, perrla, anicteric, conjugate. EARS: n ormal. NOSE: s eptum intact. ORAL CAVITY: n ormal, unremarkable. NECK/THYROID: n o jugular venous distention, no carotid bruit, thyroid normal. LYMPH NODES: n o enlarged lymph nodes,spleen normal. SKIN: n o suspicious lesions, anicteric, Significant acne over back but no other location about 50% improved from prior visits. HEART: n o clicks, gallops, murmurs, or rubs, regular rhythm, S1, S2 normal, no s3, or vascular bruits. LUNGS: c lear to auscultation . BREASTS: no masses palpable bilaterally. ABDOMEN: b owel sounds normal, no ascites, no organomegaly, no mass. RECTAL EXAM: n ot examined. MUSCULOSKELETAL: e [...] length. I made him aware of smoke [place] and of the smoking cessation programs at all of the local hospitals. 2 . H ypercholesterolemia - E78.00 N otes :His cholesterol was 232 in January 2025. A fasting lipid profile has been ordered prior to his next visit. We discussed his diet today. 3 . G ERD without esophagitis - K21.9 N otes :We have ddiscussed the use of omeprazole to control chronic heartburn. He will also use of liquid antacid for instant relief. 4 . O verweight - E66.3 N otes :His body mass index is 26.9. We discussed diet and nutrition today. We made a plan to lose weight at a rate of one half of a pound per week. 5 . C ervical radiculopathy - M54.12 N otes :His neck pain is still present but much improved. It is an intermittent nuisance at this point. He will avoid heavy lifting and then do exertion. 6 . A cne vulgaris - L70.0 N otes :He will continue long-term on doxycycline. He says he is unable to reach the affected skin to apply benzoyl peroxide. He has declined an offer referral back to dermattology. 7 . S houlder pain, left - M25.512 N otes :This is a muscular pain located over the scapula. I have advised to rest and ibuprofen. If it does not resolve he will have a referral to orthopedics. Plan: * Treatment: 2. G ERD without esophagitis L AB: PROFILE, FASTING (COMPREHENSIVE METABOLIC) L AB: CBC w DIFF L AB: Lipid Panel 3. O verweight L AB: PROFILE, FASTING (COMPREHENSIVE METABOLIC) L AB: CBC w DIFF L AB: Lipid Panel * Procedure Codes: * Preventive Medicine: Counseling: [...] tobacco use and urged to quit. 0 08/24/2024 Patient Lifestyle Goals P atient wants to quit Treatment Goals C ut down by 1 cigarette a week, Set a quit date Barriers S tress, Social smoker Self-Management Plan M moose a plan to cut down number of cigarettes over time and set a date to work towards quitting * Follow Up: a s scheduled (Reason: ov review labs) * Images: * Sign off status: Completed true * Provider: Brianda Valencia MD Date: 0 08/24/2024 Generated for Ricky villarreal/Keyanna/Haosmitting on: 04/15/2024 07:05 AM EST History and [...] sounds normal, no ascites, no organomegaly, no mass NEUROLOGIC: alert and oriented, cranial nerves 2-12 grossly intact, deep tendon reflexes 2+ symmetrical, motor strength normal upper and lower extremities, sensory exam intact SKIN: no suspicious lesion s, anicteric, Significant acne over back but no other location about 50% improved from prior visits PERIPHERAL PULSES: normal BREASTS: no masses palpable b ilaterally MUSCULOSKELETAL: extremities unremark able, no clubbing, cyanosis or edema LYMPH NODES: no enlarged lymph no alondra,spleen normal RECTAL EXAM: not examined PSYCH: alert, oriented ORAL CAVITY: normal, unremarkable
--- OUTSIDE RECORDS SUMMARY | 2025-02-13 07:05 | XMS_ITS | Patient Health Record ---
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 Ambrocio Valencia III [...] 0.2 - 1.3 BLD 50 Negative - XR cervical spine 3V Reviewed date:01/04/2025 04:42:24 AM Interpretation: Performing Lab: Notes/Report: [address] [address] XRay Report Signed Patient: Power Hernandez MR#: [id number] : 1985 Acct:[id number] Age/Sex: 38 / M ADM Date: 05/09/24 Loc: HO.LARRY Attending Dr: Ambrocio Valencia MD Ordering Physician: Ambrocio Valencia MD Date of Service: 05/09/24 Procedure(s): XR cervical spine 3V Accession Number(s): [id number] cc: Ambrocio Valencia MD CLINICAL HISTORY: NECK [...] 05/11/24 1151 DD/ 1149 TD/TT: 05/11/24 1149 Dobby Looms Pegger: [address] [address] XRay Report Signed Patient: Curt Hernandez MR#: [id number] : 1985 Acct:[id number] Age/Sex: 38 / M ADM Date: 05/09/24 Loc: BRAY[facility] Attending Dr: Ambrocio Valencia MD Ordering Physician: Ambrocio Valencia MD Date of Service: 05/09/24 Procedure(s): XR cer vical spine 3V Accession Number(s): [id number] cc: Ambrocio Valencia MD CLINICAL HISTORY: NECK [...] By: Randall Hernandez MD Signed By: <Electron ically signed by Randall Hernandez MD in OV> 05/11/24 1151 DD/ 1149 TD/TT: 05/11/24 1149 Dobby Looms Pegger: XR shoulder LT min 2V Reviewed date:01/04/2025 04:42:24 AM Interpretation: Performing Lab: Notes/Report: [address] [address] XRay Report Signed Patient: Power Hernandez MR#: [id number] : 1985 Acct:[id number] Age/Sex: 38 / M ADM Date: 05/09/24 Loc: [facility] Attending Dr: Ambrocio Valencia MD Ordering Physician: Ambrocio Valencia MD Date of Service: 05/09/24 Procedure(s): XR shoulder LT min 2V Accession Number(s): [id number] cc: Ambrocio Valencia MD CLINICAL HISTORY: PAIN 3 view left shoulder Comparison: None Findings: Bones intact. No dislocations. No significant loss of joint space or osteophytes. No erosions. No radiopaque foreign body. IMPRESSION: 1. No acute findings This document has been electronically signed by: Randall Hernandez MD on 05/11/2024 12:23:14 Dictated By: Randall Hernandez MD Signed By: <Electronically signed by Randall Hernandez MD in OV> 05/11/241222 DD/ 22 TD/TT: 05/11/241222 Dobby Looms Pegger: [place] [address] XRay Report Signed Patient: Curt Hernandez MR#: [id number] : 1985 Acct:[id number] Age/Sex: 38 / M ADM Date: 05/09/24 Loc: HO.XRAY Attending Dr: Ambrocio Valencia MD Ordering Physician: Ambrocio Valencia MD Date of Service: 05/09/24 Procedure(s): XR ivelisse ulder LT min 2V Accession Number(s): [id number] cc: Ambrocio Valencia MD CLINICAL HISTORY: PAIN 3 view left shoulder Comparison: None Findings: Bones intact. No dislocations. No significant loss of joint space or osteophytes. No erosions. No radi opaque foreign body. IMPRESSION: 1. No acute findings This document has be en electronically signed by: Randall Hernandez MD on 05/11/2024 12:23:14 Dictated By: Randall Hernandez MD Signed By: <Willy yeh signed by Randall Hernandez MD in OV> 05/11/24 1223 DD/ TD/TT: 05/11/241222 Dobby Looms Pegger: Reason For Referral No Information Medications Medication SIG (Take, Route, Frequency, Duration) Notes Start Date End Date Status Doxycycline Hyclate 100 MG TAKE 1 CAPSUL E BY MOUTH EVERY DAY for 30 Active Immunizations Vaccine Route Administration Date Status [...] Problem Status W/U Status Risk Notes Problem 403562452 Overweight (E66.3) Active confirmed His body mass index is 26.9. We discussed diet and nutrition today. We made a plan to lose weight at a rate of one half of a pound per week. Problem 308878178 Chronic superfic ial gastritis without bleeding (K29.30) Active confirmed He has had no symptoms of gastritis or of GERD since his last visit. He was directed to use omeprazole and liquid antacid if these occur. Problem 87778483 Acne vulgaris (L70.0) Active confirmed He will continue long-term on doxycycline. He says he is unable to reach the affected skin to apply benzoyl peroxide. He has declined an offer referral back to dermattology. Problem 035589860 GERD without esophagitis (K21.9) Active confirmed We have ddiscussed the use of omeprazole to control chronic heartburn. He will also use of liquid antacid for instant relief. Problem 67427218 Tobacco dependen ce (F17.200) Active confirmed We discussed smoking cessation at length. I made him aware of [facility] and of the smoking cessation programs at all of the local hospitals. Problem 64489638 Cervical radiculopathy (M54.12) Active confirmed His neck [...] he will have a referral to orthopedics. Problem Information temporarily unavailable Hypercholesterolemia (E78.00) Active confirmed His cholesterol was 232 in January 2025. A fasting lipid profile has been ordered prior to his next visit. We discussed his diet today. Vital Signs Heart Rate 83 /min 08/24/2024 Temperature 98.6 degrees Fahrenheit 08/24/2024 Blood pressure diastolic 80 mm Hg 08/24/2024 Height 71 in 08/24/2024 Blood pressure systolic 140 mm Hg 08/24/2024 Weight 193 lbs 08/24/2024 BMI 26.92 kg/m2 08/24/2024 Encounters Encounter Location Date Provider Diagnosis Ambrocio Valencia III, MD [address] [place] [address] [place] [address] 02/19/2024 Ambrocio Valencia Cervical radiculopat hy M54.12 ; Tobacco dependence F17.200 ; GERD without esophagitis K21.9 ; Acne vulgaris L70.0 and Overweight E66.3 Ambrocio Valencia III, MD [address] [place] [address] [place] [address] 05/08/2024 Ambrocio Valencia Cervical radiculopat hy M54.12 ; Shoulder pain, left M25.512 ; Chronic superficial gastritis without bleeding K29.30 ; GERD without esophagitis K21.9 ; Hypercholesterolemia E78.00 ; Overweight E66.3 and Acne vulgaris L70.0 Ambrocio Valencia III, MD [address] [place] [address] [place] [address] 05/22/2024 Ambrocio Valencia Cervical radiculopat hy M54.12 ; Tobacco dependence F17.200 ; Hypercholesterolemia E78.00 ; Chronic superficial gastritis without bleeding K29.30 ; GERD without esophagitis K21.9 ; Overweight E66.3 and Shoulder pain, left M25.512 Ambrocio Valencia III, MD [address] [place] [address] [address] [place], [place]UC[place] [address] 08/24/2024 Ambrocio Valencia Hypercholesterolemia E78.00 ; Tobacco dependence F17.200 ; GERD without esophagitis K21.9 ; Overweight E66.3 ; Cervical radiculopathy M54.12 ; Acne vulgaris L70.0 and Shoulder pain, left M25.512 Assessments Encounter Date Diagnosis (ICD Code) Assessment Notes T reatment Notes Treatment Clinical Notes 02/19/2024 Tobacco dependence (ICD-10 - F17.200) We discussed smoking cessation at length. I made him aware of [facility] and of the smoking cessation programs at all of the local hospitals. 02/19/2024 Cervical radiculopat hy (ICD-10 - M54.12) His neck pain is still present but much improved. It is an intermittent nuisance at this point. He will avoid heavy lifting and then do exertion. 05/08/2024 Cervical radiculopat hy (ICD-10 - M54.12) [...] he will have a referral to orthopedics. 05/22/2024 Tobacco dependence (ICD-10 - F17.200) We discussed smoking cessation at length. I made him aware of [facility] and of the smoking cessation programs at all of the local hospitals. 05/22/2024 Cervical radiculopat hy (ICD-10 - M54.12) His neck pain is still present but much improved. It is an intermittent nuisance at this point. He will avoid heavy lifting and then do exertion. 08/24/2024 Tobacco dependence (ICD-10 - F17.200) We discussed smoking cessation at length. I made him aware of [facility] and of the smoking cessation programs at all of the local hospitals. 08/24/2024 Hypercholesterolemia (ICD-10 - E78.00) His cholesterol was 232 in January 2025. A fasting lipid profile has been ordered prior to his next visit. We discussed his diet today. 02/19/2024 GERD without esophag itis (ICD-10 - K21.9) He is using tkpr-[id number]-beaxkwd medication like liquid antacid and omeprazole with good results. 05/08/2024 Chronic superficial gastritis without bleeding (ICD-10 - K29.30) He has had no symptoms of gastritis or of GERD since his last visit. He was directed to use omeprazole and liquid antacid if these occur. 05/22/2024 Hypercholesterolemia (ICD-10 - E78.00) The current [...] will be repeated in the near future. 08/24/2024 GERD without esophag itis (ICD-10 - K21.9) We have ddiscussed the use of omeprazole to control chronic heartburn. He will also use of liquid antacid for instant relief. 02/19/2024 Acne vulgaris (ICD-1 0 - L70.0) I have reinstituted doxycycline 100 mg once a day to control the activity which is much worse on his back. If necessary, he will return to the primary substance abuse counselor. I recommended he resume the use of benzoyl peroxide. 05/08/2024 GERD without esophag itis (ICD-10 - K21.9) He is using wcoj-yas-vsomxgm medication like liquid antacid and omeprazole with good results. 05/22/2024 Chronic superficial gastritis without bleeding (ICD-10 - K29.30) He has had no symptoms of gastritis or of GERD since his last visit. He was directed to use omeprazole and liquid antacid if these occur. 08/24/2024 Overweight (ICD-10 - E66.3) His body mass index is 26.9. We discussed diet and nutrition today. We made a plan to lose weight at a rate of one half of a pound per week. 02/19/2024 Overweight (ICD-10 - E66.3) His weight has increased 7 pounds to 192. His body mass index is 26.78.. He is very slightly overweight. We discussed diet and nutrition. We made a plan to lose weight at a rate of one half of a pound per week until a body mass index is in the normal range. 05/08/2024 Hypercholesterolemia (ICD-10 - E78.00) The current [...] be repeated in the near future. 05/22/2024 GERD without esophag itis (ICD-10 - K21.9) He is using bnxn-qpq-ijpjiai medication like liquid antacid and omeprazole with good results. 08/24/2024 Cervical radiculopat hy (ICD-10 - M54.12) His neck pain is still present but much improved. It is an intermittent nuisance at this point. He will avoid heavy lifting and then do exertion. 05/08/2024 Overweight (ICD-10 - E66.3) His weight has increased 7 pounds to 192. His body mass index is 26.78.. He is very slightly overweight. We discussed diet and nutrition. We made a plan to lose weight at a rate of one half of a pound per week until a body mass index is in the normal range. 05/22/2024 Overweight (ICD-10 - E66.3) His weight has increased 7 pounds to 192. His body mass index is 26.78.. He is very slightly overweight. We discussed diet and nutrition. We made a plan to lose weight at a rate of one half of a pound per week until a body mass index is in the normal range. 08/24/2024 Acne vulgaris (ICD-1 0 - L70.0) He will continue long-term on doxycycline. He says he is unable to reach the affected skin to apply benzoyl peroxide. He has declined an offer referral back to dermattology. 05/08/2024 Acne vulgaris (ICD-1 0 - L70.0) He will continue long-term on doxycycline. He says he is unable to reach the affected skin to apply benzoyl peroxide. He has declined an offer referral back to dermattology. 05/22/2024 Shoulder pain, left (ICD-10 - M25.512) This is a muscular pain located over the scapula. I have advised to rest and ibuprofen. If it does not resolve he will have a referral to orthopedics. 08/24/2024 Shoulder pain, left (ICD-10 - M25.512) This is a muscular pain located over the scapula. I have advised to rest and ibuprofen. If it does not resolve he will have a referral to orthopedics. Plan Of Treatment Pending Test Test Name Order Date URINE DIP STICK 02/14/2022 URINE DIP STICK 02/08/2020 PROFILE, FASTING (COMPREHENSIVE METABOLI C) 02/15/2023 PROFILE, FASTING (COMPREHENSIVE METABOLI C) 02/06/2019 PROFILE, FASTING (COMPREHENSIVE METABOLI C) 02/14/2022 PROFILE, FASTING (COMPREHENSIVE METABOLI C) 02/13/2021 PROFILE, FASTING (COMPREHENSIVE METABOLI C) 02/08/2020 PROFILE, FASTING (COMPREHENSIVE METABOLI C) 08/24/2024 LIPID PANEL 02/08/2020 LIPID PANEL 02/06/2019 PSA, TOTAL 02/15/2023 PSA, TOTAL 02/08/2020 CBC w DIFF 08/24/2024 CBC w DIFF 02/08/2020 CBC w DIFF 02/06/2019 CBC w DIFF 02/14/2022 CBC w DIFF 02/13/2021 XR SHOULDER LT 2 VIEWS 05/08/2024 CBC WITH AUTO DIFF 02/15/2023 Lipid Panel 02/13/2021 Lipid Panel 08/24/2024 Lipid Panel 02/15/2023 Lipid Panel 02/14/2022 Next Appt Details Provider Name:Ambrocio Valencia , 02/22/2025 04:00:00 PM, [address] [place] [address] MARI CRUM, [place], [address], Insurance Providers Payer Name Payer Address Payer Phone Subscriber Number Group Number Insured Name Patient Relationship to Insured Coverage Start Date Coverage End Date [address] [facility] [place] [phone] [id number] Power Hernandez Self - patient is the insured Medical (General) History Medical History History ICD Code history of sprain of right ankle multiple caries, poor dentition tobacco dependence since age 16 dermatitis costochondritis, [facility] emergency room, 2016 GERD 2008 gastritis 2008 on upper GI series Surgical History Surgery Date(Month/Year) No history history of fracture of right ankle Hospitalization History Reason Date(Month/Year) No history
[2025-02-13 07:13] LABS: MANUAL DIFF FLAG NO
[2025-02-13 09:56] LABS: Hematocrit 47.7 % (42.0-52.0); Hemoglobin 16.0 g/dl (14.0-18.0); Imm Gran Abs Auto 0.06 X10*3/uL (0.00-0.03); Imm Gran Pct Auto 0.5 % (0.0-0.4); Lymphocytes Absolute Auto 3.2 X10*3/uL (1.2-4.9); Mean Corpuscular HGB Conc 33.5 g/dl (31.0-36.0); Mean Corpuscular Hemoglobin 29.9 pg (27.0-33.0); Mean Corpuscular Volume 89.2 fL (80.0-98.0); NRBC Abs Auto 0.000 X10*3/uL (0.0-0.012); NRBC Pct Auto 0.0 /100WBC (0.0-0.2); Platelet Count 284 X10*3/uL (160-400); Red Blood Count 5.35 X10*6/uL (4.60-5.80); White Blood Count 13.0 X10*3/uL (4.8-10.8)
[2025-02-13 10:47] LABS: Alanine Aminotransferase 38 U/L (0-40); Albumin Level 4.5 g/dL (3.5-5.0); Alkaline Phosphatase 105 U/L (39-117); Anion Gap 15 (12-20); Aspartate Amino Transferase 36 U/L (5-37); Blood Urea Nitrogen 9 mg/dL (9-16); Calcium 9.2 mg/dL (8.4-10.2); Carbon Dioxide 27 mmol/L (22-29); Chloride 103 mmol/L (96-108); Cholesterol 219 mg/dL (<200); Estimated Glomerular Filt Rate > 60; HDL Cholesterol 40 mg/dL (>40); Potassium 4.5 mmol/L (3.3-5.1); Sodium 140 mmol/L (135-145); Total Protein 7.9 g/dL (6.5-8.0); Triglycerides 237 mg/dL (<150)
== END 2025-02-13 07:02 | disposition home or self-care (01) ==
LOC: HO.LAB 07:01
PROVIDERS: PCP Internal Medicine Medical Oncology; Visit Provider Internal Medicine Medical Oncology
DX: K21.9 Gastro-esophageal reflux disease without esophagitis (principal); E78.00 Pure hypercholesterolemia, unspecified; E66.3 Overweight
CPT/HCPCS: 36415; 80053; 80061; 85025